=== PATIENT | female | born 1940 | race Caucasian/White ===

== ENCOUNTER 2016-10-24 09:47 | Emergency (ER) | payer SELFPAY ==
[2016-10-24 10:26] VITALS: BP 159/109
--- NOTE | 2016-10-24 11:32 | UC ---
Respiratory Complaint HPI - HPI Summary HPI Summary: The patient comes in today for: 1. cough, sore throat: Onset: 3 days ago. Palliative/provocative: Nothing makes it better or worse. Quality: scratchy. Region: Throat, upper respiratory area. Severity: 6/10 Time: Constant. Associated symptoms: Cough: productive of white material. Dyspnea: "little bit." Chest pain: None. Rhinitis: Clear Previous lung disease: "years ago" had blood clot in the left lung." Inhalers in the past: None. Wheezing: "Little bit." Sinus pressure: Present FEvers: None. * - History of Current Complaint Chief Complaint: UCRespiratory Stated Complaint: URI Time Seen by Provider: 10/24/16 11:26 Hx Obtained From: Patient - Allergies/Home Medications Allergies/Adverse Reactions: Allergies Allergy/AdvReac Type Severity Reaction Status Date / Time No Known Allergies Allergy Verified 10/24/16 10:19 Home Medications: Home Medications FLUoxetine CAP* [PROzac CAP*] 20 mg PO DAILY 10/24/16 [History Confirmed ] Levothyroxine TAB* [Synthroid 75 MCG TAB*] 75 mcg PO DAILY 10/24/16 [History Confirmed 10/24/16] Simvastatin [Zocor 5 MG-] 10 mg PO 1700 10/24/16 [History Confirmed 10/24/16] Warfarin TAB(*) [Coumadin TAB(*)] 3 mg PO 1700 10/24/16 [History Confirmed 10/24] traZODone TAB* [Desyrel TAB*] 50 mg PO BEDTIME 10/24/16 [History Confirmed 10/24] PMH/Surg Hx/FS Hx/Imm Hx Previously Healthy: No Endocrine History Of: Reports: Thyroid Disease, Dyslipidemia Denies: Diabetes, Hyperthyroidism, Hypothyroidism Cardiovascular History Of: Reports: Hypertension Denies: Cardiac Disorders, Pacemaker/ICD, Myocardial Infarction, Congestive Heart Failure, Atrial Fibrillation, Deep Vein Thrombosis, Bleeding Disorders Respiratory History Of: 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 Denies: COPD, Asthma, Bronchitis, Pneumonia GI/ History Of: Denies: Gastroesophageal Reflux, Ulcer, Gastrointestinal Bleed, Gall Bladder Disease, Kidney Stones, Diverticulitis, Renal Disease, Urosepsis Neurological History Of: Denies: TIA, CVA, Dementia, Seizures, Migraine Psychological History Of: Reports: Anxiety, Depression Denies: Bipolar Disorder, Schizophrenia, Post Traumatic Stress Disorder Cancer History Of: Denies: Lung Cancer, Colorectal Cancer, Breast Cancer, Prostate Cancer, Cervical Cancer Other History Of: Anticoagulant Therapy - Warfarin. Negative For: HIV, Hepatitis B, Hepatitis C - Surgical History Surgical History: Yes Surgery Procedure, Year, and Place: d/c - Family History Known Family History: Positive: Hypertension Negative: Cardiac Disease - Social History Occupation: Retired Alcohol Use: None Substance Use Type: None Smoking Status (MU): Former Smoker Review of Systems Constitutional: Negative Skin: Negative Eyes: Negative ENT: Nasal Discharge Respiratory: Cough Cardiovascular: Negative Gastrointestinal: Negative Genitourinary: Negative Motor: Negative All Other Systems Reviewed And Are Negative: Yes Physical Exam Triage Information Reviewed: Yes Appearance: Well-Appearing, No Pain Distress, Well-Nourished, Other: - She will cough several times while I was in the room evaluating her. Vital Signs: Initial Vital Signs Temp 99.6 F 10/24/16 10:23 Pulse 88 10/24/16 10:23 Resp 22 10/24/16 10:23 BP 159/109 10/24/16 10:23 Pulse Ox 96 10/24/16 10:23 Vital Signs Reviewed: Yes Eyes: Positive: Conjunctiva Clear, Discharge ENT: Positive: Normal ENT inspection, Pharynx normal. Negative: Pharyngeal erythema, Nasal congestion, Nasal drainage, TM bulging, TM dull, TM red, Tonsillar swelling, Tonsillar exudate Dental: Negative: Gross Decay/Caries @, Dental Fracture @ Neck: Positive: Supple, Nontender, No Lymphadenopathy. Negative: Nuchal Rigidity Respiratory: Positive: Chest non-tender, Lungs clear, No respiratory distress, No accessory muscle use. Negative: Rhonchi, Wheezing Cardiovascular: Positive: RRR, No Murmur Abdomen Description: Positive: Nontender, No Organomegaly, Soft. Negative: Distended, Guarding Musculoskeletal: Positive: Strength Intact, ROM Intact Neurological: Positive: Alert, Muscle Tone Normal Psychological: Positive: Age Appropriate Behavior, Consolable Skin: Negative: rashes, breakdown UC Diagnostic Evaluation - Laboratory O2 Sat by Pulse Oximetry: 96 Respiratory Course/Dx - Course Course Of Treatment: Patient was told that she appears to have a viral upper respiratory infection which antibiotics will not help. However, if she has a worsening with continued sinus pressure and discoloration of the mucous she may find the antibiotic helpful then. - Differential Dx/Diagnosis Provider Diagnoses: Upper respiratory infection. high blood pressure. Discharge - Discharge Plan Condition: Stable Disposition: HOME Patient Education Materials: Upper Respiratory Infection (ED) Referrals: Fabián Santos MD [Primary Care Provider] - 1 Week (Please see your primary care provider in a week to see how well you are doing and to check your blood pressure. If you get worse, please be seen sooner in the ER or through us.)
== END 2016-10-24 11:46 | disposition home or self-care (01) ==
LOC: UCEAST 09:47
DX: J06.9 Acute upper respiratory infection, unspecified (principal); I10 Essential (primary) hypertension; E07.9 Disorder of thyroid, unspecified; E78.5 Hyperlipidemia, unspecified; Z86.711 Personal history of pulmonary embolism; Z79.01 Long term (current) use of anticoagulants; F41.9 Anxiety disorder, unspecified; F32.9 Major depressive disorder, single episode, unspecified; Z87.891 Personal history of nicotine dependence
CPT/HCPCS: 99202; G0463

== ENCOUNTER 2017-07-20 11:19 | Observation (INO) | payer MEDICARE, OTHER ==
--- OUTSIDE RECORDS SUMMARY | 2017-07-20 11:47 | XMS REPORT ---
:1940 External Reference #:[id number] Author Organization [facility] Address [address] [place] [address] Phone [phone] Care Team Providers Name Role Phone Fabián Santos MD Care Team Information Geotechnical Field Technician Unavailable Fabián Santos MD Primary Care Physician Unavailable Payers Type Date Identification Numbers Payment Provider Subscriber Health Maintenance Effective: Policy Number: [employer] Marilynn Elder (O) 05/29/2016 [id number] Ppo Group Number: [id number] [id number] PayID: [id number] [place] [address] [facility] Expires: Policy Number: [employer] Marilynn Wilson 05/28/2016 [id number] Medicare Group Number: [id number] [address] [address] PayID: [id number] [place] [address] Problems Date Description Provider Status Onset: 11/02/2016 Acute maxillary sinusitis Fabián Santos M.D. Active Onset: 03/10/2016 Long-term current use of Fabián Santos M.D. Active anticoagulant Onset: 03/27/2015 Essential tremor Fabián Santos M.D. Active Onset: 03/27/2015 Pulmonary embolism Fabián Santos M.D. Active Onset: 07/18/2012 Anemia Fabián Santos M.D. Active Onset: 07/18/2012 Anticoagulant Fabián Santos M.D. Active Onset: 03/11/2011 Hyperlipidemia Fabián Santos M.D. Active Onset: 03/11/2011 Hypothyroidism Fabián Santos M.D. Active Social History Type Date Description Comments Smoking Nonsmoker Allergies, Adverse Reactions, Alerts Date Description Reaction Status Severity Comments 10/17/2011 NKDA active 11/13/1997 Nka active 07/18/2017 Doxycycline Hyclate active Medications Medication Date Status Form Strength Qnty SIG Indications Ordering Provider Levothyroxine 03/30 Active Tablets 75mcg 90tab Take One Fabián Sanchez s Tablet By Danielle Mouth Once M.D. Daily Walker With 09/09 Active use as needed Fabián Newman Seat dx: 781.2 Malachi Santos Trazodone HCL 01/28 Active Tablets 50mg 90tab take 1 to 3 Fabián Newman /2010 s tablets [facility] [place] [facility] as M.DAltaf directed Warfarin 01/16 Active Tablets 3mg 60tab use as Kash F. Sodium s directed Malachi Lyons Zocor 01/12 Active Tablets 10mg 90tab take one Fabián Newman s tablet by Danielle mouth nightly M.DAltaf at bedtime Prozac 04/26 Active Caps 20mg 30cap 1qd - take F41.9 Fabián Newman /2006 s one capsule Danielle by mouth M.DAltaf every day Zithromax 11/02 Hx Tablets 250mg 1tabs as directed Fabián KincaidValente Hugo Santos M.D. 11/02 Cefuroxime 11/02 Hx Tablets 500mg 20tab twice a day Fabián Newman Axetil s as needed Hugo Santos M.D. 07/18 Propranolol 03/27 Hx Tablets 20mg 30tab take one Fabián Newman HCL s tablet a day Hugo Santos tremor M.DAltaf 03/10 Iron 07/18 Hx Tablets 325(65Fe) 60tab 1 po bid Fabián Newman /2012 mg s Hugo Santos M.D. 06/16 Synthroid 12/07 Hx Tablets 75mcg 90tab 1 by mouth Fabián Newman /2009 s every day Hugo Santos M.D. 03/30 Synthroid 06/23 Hx Tablets 100mcg 30tab take one Fabián Newman s tablet by Danielle - mouth one M.D. 12/07 time daily Multivitamins 01/12 Hx Tablets 30tab 1 po qd [facility] 07/18 Warfarin 01/12 Hx Tablets 2mg 90tab take as [facility] 06/16 [facility] [place] Synthroid 01/12 Hx Tablets 125mcg 30tab 1 po qd Fabián Trent Hugo Robin M.D. 06/23 Loratadine 08/28 Hx Tablets 10mg 30tab 1 po qd 477.9 polly Smith - [employer] 03/04 Ambien 06/06 Hx Tablets 10mg 30tab 1 po qhs prn polly Smith - [employer] 09/28 Trazadone 04/26 Hx 50mg 90uni 1-3 po q hs 780.52 Fabián Newman Hugo Mckinney M.D. 04/13 Xanax 09/20 Hx Tablets 0.25mg 30tab 1 po tid 300.00 Fabián Newman /2006 Hugo Robin M.D. 12/09 Out Of Work 12/22 Hx Was out of work 12/17 And Nehemias - 12/18 due to Afnp-C 12/25 illness Omnicef 12/12 Hx Capsules 300mg 14cap 2 PO qd X 7 680.8 s Days Nehemias, - Afnp-C 12/19 Keflex 12/12 Hx Capsules 500mg 6caps 1 po bid x 3 680.8 days Nehemias, - Afnp-C 12/22 Out Of Work 12/12 Hx was out of work yest due Nehemias, - to illness Afnp-C 12/14 Note 03/20 Hx Ada Has Been Out Of Work Sarah, - Since [employer] 12/12 10\\\\04 Due To L Knee Pain And May Not Return Until Seen By The Orthopedist Vicodin 03/20 Hx 5/500 60uni 1-2 po q4hrs ts prn Sarah, - [employer] 12/12 Lexapro 03/02 Hx 20mg 60uni 1 po qd [facility] 12/12 Of Bextra 03/02 Hx 10mg 30uni 1 po qd ts Sarah, - [employer] 03/20 Note 03/02 Hx ada was unable to Sarah, - work 10\\1\\04 [employer] 03/20 -10\\3\\04 due to knee pain and may return to work monday, 10\\6\\04 Cipro XR 02/18 Hx 500mg. 10uni One PO qd as Baron A. Hugo Purvis M.D. 02/28 Bactroban 02/18 Hx 15Gra apply to Chin Baron Lebron Hugo Mcclellan M.D. 12/12 Prozac 12/01 Hx 20mg 1 PO qd [facility] 03/02 Of Levaquin 12/01 Hx 500mg 3unit 1 qd Baron A. Hugo Baez M.D. 02/18 Avelox 11/27 Hx 400mg 5unit 1 qd Siddharth T. Hugo Mccrary M.D. 12/01 Work Excuse 11/27 Hx unable to Siddharth TAltaf work from [employer], - 12/01-7 Malachi 03/20 Amoxicillin 05/10 Hx 250mg 30uni 1PO tid Fabián Newman Hugo Mckinney M.D. 11/27 Work Excuse 05/10 Hx unable to Fabián Newman /2002 work 05/11/03 Hugo Santos M.D. 11/27 Return To Work 04/28 Hx may return to Adrián JAltaf /2002 work as of [employer], - 04/20/03 Malachi 11/27 And Normal Duties Buspar 01/28 Hx 5mg 90uni 1 PO tid Adrián JAltaf /2002 Hugo Francis M.D. 02/11 Zoloft 01/07 Hx 50mg 30uni One Half Tab Adrián JAltaf /2002 ts Daily For 5 Finver, - Days Then 1 M.D. 12/01 Tessalon 09/10 Hx 100mg 30uni 1 PO tid Adrián JAltaf Pear ts Hugo Davidson M.D. 09/20 Duratuss 09/10 Hx 20uni 1 PO bid prn Adrián J. ts Head Lety, - Congestion MMartin 09/20 Work Excuse 09/10 Hx Unable To Adrián J. Work due to Lety, - illness May M.DAltaf 04/28 Return 03/20/03 Zithromax 08/29 Hx 250mg 6unit 2 Tabs Day 1 Emmanuel S. s Malachi Santo - 1 09/04 Tab qd Days Thru 5 Out Of Work 08/29 Hx Out Of Work Baron AAltaf Until 09/01/02 Hugo Green M.D. 09/08 Due To Illness Diflucan 06/21 Hx 100mg 8unit 2 Stat, Then s 1 qd Nehemias, - Afnp-C 06/28 Terazol 7 06/21 Hx 1unit 1 s Applicatorful Nehemias, - Vaginally hs Afnp-C 06/28 X Xanax 06/11 Hx .25mg 30uni 1 PO tid prn ts Nehemias, - Afnp-C 01/07 Macrobid 06/05 Hx 100mg 20uni 1 bid Siddharth T. ts Midura, - M.D. 06/21 Pyridium 06/05 Hx 100mg 30uni 1 PO tid prn Siddharth T. ts Bladder Pain Midura, - M.D. 06/21 Out Of Work 05/31 Hx PT Will Be Siddharth T. Out Of Work Midura, - 05/31/02- M.D. 06/21 3 D/T Illness Floxin 05/30 Hx 200mg 20uni 1 PO bid Tali ts Nehemias - Afnp-C 06/09 Estrace 05/23 Hx CR 0.01% 42.5G 2G Intravaginall Nehemias, - y Daily X 2 Afnp-C 02/11 WKS; 1G qd X 2 WKS; Maintenance: 1G 1 X/WK Note 05/23 Hx Ada Was Seen In This Nehemias, - Office Today Afnp-C 05/24 Bactrim DS 05/14 Hx 10uni 1 PO bid Adrián J. Hugo Francis M.D. 05/23 Levaquin 04/12 Hx 500mg 5unit 1 qd Fabián JAltaf s Hugo Santos M.D. 05/14 Note For 04/12 Hx Off Today May Adrián J. School Or Work /2001 Return To Lety, Absence - Work 04-13 M.DAltaf 05/23 Return To Work 07/26 Hx May Return To Work On Sarah, - Monday 3\\4\\02 [facility] 10/02 Duratuss G 07/26 Hx 20uni Take One bid ts Sarah, - [facility] 10/02 Return To Work 07/20 Hx May Not Return To Sarah, - Work Until [facility] 10/02 Rechecked By Me 2\\28\\02. Out Of Work 07/17 Hx Out Of Work Candel[facility] Through [facility] [place], - 07/20/01 Afnp-C 07/20 Biaxin 07/12 Hx Tabs 500mg 20tab 1 PO bid s Sarah, - [facility] 10/02 Return To Work 07/12 Hx May Not Return To Sarah, - Work Until [facility] 10/02 2\\20\\02 Out Of Work 10/04 Hx Will Be Out Kash F. /2000 Of Work Hugo Lyons M.D. 10/05 Until 10/09/00 Out Of Work 09/18 Hx Will Be Out Kash F. /2000 Of Work Hugo Lyons M.D. 09/19 Until 10/02/00 Vicodin 09/15 Hx 5/500 mg 30uni 1-2 PO Q4-6H Kash F. ts Hugo Roberts M.D. 10/02 Out Of Work 09/11 Hx May Return To Kash F. /2001 Work On [employer] Hugo Lyons M.D. 09/1209/14/00 Out Of Work 09/05 Hx Will Be Out Of Work Hugo Del Cid 09/12 Until 09/12/00 Amoxicillin 08/25 Hx 250mg 30uni 1 PO tid Fabián J. Hugo Mckinney M.D. 09/05 Anaprox DS 03/04 Hx Tabs 550mg 10tab 1 PO bid prn Hugo Marin M.D. 03/18 Xanax 01/19 Hx .25mg 90uni 1 PO tid prn . Hugo Pride M.D. 08/25 Prozac 12/31 Hx 20mg 30uni 1 PO qd Hugo Pride M.D. 10/02 Out Of Work 12/24 Hx Will Be Out Altaf Of Work Until Serena, - 01/05/98 Malachi 12/25 Zoloft 12/16 Hx 50mg 0unit Take One . s Hugo Givens M.D. 12/31 Xanax 12/16 Hx Tabs .25mg 60tab 1 PO tid prn Hugo Marin M.D. 12/30 Out Of Work 12/09 Hx Will Be Out Altaf Of Work Until Serena, - 12/11/97 Malachi 12/10 Zithromax 11/13 Hx 250mg 6unit 2 Tabs Day 1 polly Del Cid - Nacho Avila-Tristen 11/18 Tab qd Days Thru 5 Womens 50+ 00/00 Hx Capsules Unknown Advanced /0000 - 11/02 Immunizations CPT Code Status Date Vaccine Lot # [id number] Given 04/13/2017 Influenza Vac, Quadrivalent, Slit Virus, Im [id number] Given 03/10/2016 High-Dose, Influenza Virus Vacccine-fluzone 65 and [id number] older 29617 Given 03/27/2015 Pneumococcal Conjugate Vacc-13 [id number] 19806 Given 03/27/2015 High-Dose, Influenza Virus Vacccine-fluzone 65 and [id number] older 78967 Given 05/23/2014 High-Dose, Influenza Virus Vacccine-fluzone 65 and [id number] older 35470 Given 02/27/2012 DO Not Use Split Influenza Virus Vaccine [id number] Given 03/11/2011 Split Influenza Medicare: Fluzone [id number] 20591 Given 03/11/2011 Pneumococcal Immunization [id number] Vital Signs Date Vital Result Comment 07/18/2017 Heart Rate 80 /min Body Temperature 97.7 F O2 % BldC Oximetry 94 % 11/02/2016 BP Systolic 126 mmHg BP Diastolic 80 mmHg Heart Rate 78 /min Body Temperature 98.1 F Respiratory Rate 16 /min Height 64 inches 5'4" Weight 185.00 lb BMI (Body Mass Index) 31.8 kg/m2 09/09/2016 Heart Rate 88 /min Body Temperature 97.5 F Respiratory Rate 20 /min Height 64 inches 5'4" Weight 188.00 lb BMI (Body Mass Index) 32.3 kg/m2 03/10/2016 BP Systolic 132 mmHg BP Diastolic 82 mmHg Heart Rate 80 /min Body Temperature 97.8 F Height 64 inches 5'4" Weight 198.00 lb BMI (Body Mass Index) 34.0 kg/m2 03/27/2015 BP Systolic 136 mmHg BP Diastolic 80 mmHg Heart Rate 62 /min Body Temperature 97.4 F Respiratory Rate 20 /min Height 64 inches 5'4" Weight 196.00 lb BMI (Body Mass Index) 33.6 kg/m2 12/15/2014 BP Systolic 136 mmHg BP Diastolic 80 mmHg Heart Rate 64 /min Body Temperature 98.0 F Respiratory Rate 18 /min Height 64 inches 5'4" Weight 194.00 lb BMI (Body Mass Index) 33.3 kg/m2 06/16/2014 BP Systolic 130 mmHg BP Diastolic 802 mmHg Heart Rate 64 /min Body Temperature 97.5 F Respiratory Rate 20 /min Height 64 inches 5'4" Weight 196.00 lb BMI (Body Mass Index) 33.6 kg/m2 03/15/2013 BP Systolic 138 mmHg BP Diastolic 80 mmHg Heart Rate 64 /min Body Temperature 97.5 F Respiratory Rate 16 /min Height 64 inches 5'4" Weight 194.00 lb BMI (Body Mass Index) 33.3 kg/m2 08/13/2012 BP Systolic 122 mmHg BP Diastolic 72 mmHg Heart Rate 74 /min Body Temperature 98.6 F Respiratory Rate 16 /min Height 64 inches 5'4" Weight 195.25 lb BMI (Body Mass Index) 33.5 kg/m2 07/18/2012 BP Systolic 136 mmHg BP Diastolic 80 mmHg Heart Rate 82 /min Body Temperature 98.9 F Respiratory Rate 18 /min Height 64 inches 5'4" Weight 199.00 lb BMI (Body Mass Index) 34.2 kg/m2 04/13/2012 BP Systolic 142 mmHg BP Diastolic 72 mmHg Heart Rate 80 /min Body Temperature 97.6 F Height 64 inches 5'4" Weight 204.00 lb BMI (Body Mass Index) 35.0 kg/m2 10/17/2011 BP Systolic 140 mmHg BP Diastolic 80 mmHg Heart Rate 80 /min Body Temperature 98.9 F Height 64 inches 5'4" Weight 203.00 lb BMI (Body Mass Index) 34.8 kg/m2 03/11/2011 BP Systolic 118 mmHg BP Diastolic 76 mmHg Heart Rate 68 /min Respiratory Rate 15 /min Height 64 inches 5'4" Weight 200.00 lb BMI (Body Mass Index) 34.3 kg/m2 09/09/2010 BP Systolic 142 mmHg BP Diastolic 80 mmHg Heart Rate 76 /min Height 64 inches 5'4" Weight 201.00 lb BMI (Body Mass Index) 34.5 kg/m2 12/04/2009 BP Systolic 110 mmHg BP Diastolic 62 mmHg Heart Rate 76 /min Weight 179.00 lb 09/02/2009 BP Systolic 130 mmHg BP Diastolic 80 mmHg Heart Rate 76 /min Height 64 inches 5'4" Weight 178.00 lb BMI (Body Mass Index) 30.6 kg/m2 06/16/2009 BP Systolic 124 mmHg BP Diastolic 76 mmHg Heart Rate 80 /min Height 64 inches 5'4" Weight 176.00 lb BMI (Body Mass Index) 30.2 kg/m2 03/04/2009 BP Systolic 120 mmHg BP Diastolic 70 mmHg Heart Rate 76 /min Height 64 inches 5'4" Weight 180.00 lb BMI (Body Mass Index) 30.9 kg/m2 01/12/2009 BP Systolic 120 mmHg BP Diastolic 84 mmHg Heart Rate 72 /min Weight 180.00 lb 08/28/2008 BP Systolic 122 mmHg BP Diastolic 82 mmHg Heart Rate 90 /min Weight 182.00 lb 04/26/2007 BP Systolic 140 mmHg BP Diastolic 80 mmHg Heart Rate 88 /min Body Temperature 97.9 F Respiratory Rate 20 /min Height 64 inches 5'4" 10/24/2006 BP Systolic 128 mmHg BP Diastolic 80 mmHg Heart Rate 76 /min Body Temperature 98.6 F Height 64 inches 5'4" Weight 177.00 lb BMI (Body Mass Index) 30.4 kg/m2 09/20/2006 BP Systolic 126 mmHg BP Diastolic 68 mmHg Heart Rate 80 /min Height 64 inches 5'4" Weight 180.00 lb BMI (Body Mass Index) 30.9 kg/m2 12/15/2005 BP Systolic 140 mmHg BP Diastolic 80 mmHg Heart Rate 78 /min Body Temperature 99.0 F Height 64 inches 5'4" Weight 173.00 lb BMI (Body Mass Index) 29.7 kg/m2 12/12/2005 BP Systolic 126 mmHg BP Diastolic 84 mmHg Heart Rate 96 /min Body Temperature 99.0 F Height 64 inches 5'4" Weight 173.00 lb BMI (Body Mass Index) 29.7 kg/m2 03/20/2004 BP Systolic 134 mmHg BP Diastolic 90 mmHg Heart Rate 80 /min Height 64 inches 5'4" Weight 174.00 lb BMI (Body Mass Index) 29.9 kg/m2 03/02/2004 BP Systolic 120 mmHg BP Diastolic 80 mmHg Heart Rate 80 /min Body Temperature 98.4 F Height 64 inches 5'4" Weight 175.00 lb BMI (Body Mass Index) 30.0 kg/m2 02/19/2004 BP Systolic 136 mmHg BP Diastolic 90 mmHg Heart Rate 76 /min Body Temperature 97.7 F Height 64 inches 5'4" Weight 176.00 lb BMI (Body Mass Index) 30.2 kg/m2 12/08/2003 BP Systolic 132 mmHg BP Diastolic 86 mmHg Heart Rate 72 /min Height 64 inches 5'4" Weight 176.00 lb BMI (Body Mass Index) 30.2 kg/m2 12/06/2003 BP Systolic 130 mmHg BP Diastolic 80 mmHg Heart Rate 80 /min Body Temperature 98.2 F Height 64 inches 5'4" Weight 176.00 lb BMI (Body Mass Index) 30.2 kg/m2 12/03/2003 BP Systolic 148 mmHg BP Diastolic 80 mmHg Heart Rate 108 /min Body Temperature 98.2 F Height 64 inches 5'4" 12/02/2003 BP Systolic 146 mmHg BP Diastolic 72 mmHg Heart Rate 76 /min Body Temperature 97.8 F Height 64 inches 5'4" Weight 174.00 lb BMI (Body Mass Index) 29.9 kg/m2 11/28/2003 BP Systolic 142 mmHg BP Diastolic 80 mmHg Heart Rate 72 /min Body Temperature 99.8 F Height 64 inches 5'4" Weight 172.00 lb BMI (Body Mass Index) 29.5 kg/m2 05/10/2003 BP Systolic 128 mmHg BP Diastolic 80 mmHg Body Temperature 97.6 F Height 64 inches 5'4" 02/11/2003 BP Systolic 134 mmHg BP Diastolic 94 mmHg Heart Rate 72 /min Height 64 inches 5'4" Weight 155.00 lb BMI (Body Mass Index) 26.6 kg/m2 01/28/2003 BP Systolic 106 mmHg BP Diastolic 60 mmHg Heart Rate 88 /min Height 64 inches 5'4" Weight 150.00 lb BMI (Body Mass Index) 25.7 kg/m2 01/07/2003 BP Systolic 110 mmHg BP Diastolic 50 mmHg Heart Rate 100 /min Height 64 inches 5'4" 09/10/2002 BP Systolic 120 mmHg BP Diastolic 80 mmHg Heart Rate 128 /min Body Temperature 98.8 F Height 64 inches 5'4" Weight 160.00 lb BMI (Body Mass Index) 27.5 kg/m2 08/29/2002 Heart Rate 112 /min Body Temperature 99.5 F Height 64 inches 5'4" 08/01/2002 BP Systolic 140 mmHg BP Diastolic 90 mmHg Heart Rate 74 /min Height 64 inches 5'4" 06/26/2002 BP Systolic 130 mmHg BP Diastolic 76 mmHg Heart Rate 80 /min Height 64 inches 5'4" Weight 155.00 lb BMI (Body Mass Index) 26.6 kg/m2 06/21/2002 BP Systolic 120 mmHg BP Diastolic 80 mmHg Body Temperature 98.4 F Height 64 inches 5'4" 06/11/2002 BP Systolic 128 mmHg BP Diastolic 72 mmHg Heart Rate 80 /min Body Temperature 98.5 F Height 64 inches 5'4" 06/05/2002 BP Systolic 136 mmHg BP Diastolic 88 mmHg Heart Rate 84 /min Body Temperature 98.1 F Height 64 inches 5'4" 05/23/2002 BP Systolic 112 mmHg BP Diastolic 80 mmHg Body Temperature 97.7 F Height 64 inches 5'4" Weight 159.00 lb BMI (Body Mass Index) 27.3 kg/m2 04/12/2002 BP Systolic 128 mmHg BP Diastolic 82 mmHg Heart Rate 68 /min Body Temperature 97.9 F Height 64 inches 5'4" Weight 159.00 lb BMI (Body Mass Index) 27.3 kg/m2 10/02/2001 BP Systolic 122 mmHg BP Diastolic 70 mmHg Height 64 inches 5'4" Weight 158.00 lb BMI (Body Mass Index) 27.1 kg/m2 07/26/2001 BP Systolic 120 mmHg BP Diastolic 80 mmHg Heart Rate 72 /min Height 64 inches 5'4" Weight 160.00 lb BMI (Body Mass Index) 27.5 kg/m2 07/20/2001 BP Systolic 132 mmHg BP Diastolic 82 mmHg Body Temperature 98.8 F Height 64 inches 5'4" Weight 158.00 lb BMI (Body Mass Index) 27.1 kg/m2 07/17/2001 BP Systolic 122 mmHg BP Diastolic 78 mmHg Body Temperature 97.8 F Height 64 inches 5'4" Weight 156.00 lb BMI (Body Mass Index) 26.8 kg/m2 07/12/2001 BP Systolic 102 mmHg BP Diastolic 60 mmHg Body Temperature 100.7 F Height 64 inches 5'4" Weight 160.00 lb BMI (Body Mass Index) 27.5 kg/m2 09/11/2000 BP Systolic 100 mmHg BP Diastolic 80 mmHg Heart Rate 92 /min Height 64 inches 5'4" Weight 166.00 lb BMI (Body Mass Index) 28.5 kg/m2 09/05/2000 BP Systolic 110 mmHg LG Cuff BP Diastolic 70 mmHg LG Cuff Body Temperature 97.7 F With Advil Height 64 inches 5'4" Weight 166.50 lb BMI (Body Mass Index) 28.6 kg/m2 08/25/2000 BP Systolic 110 mmHg BP Diastolic 70 mmHg Body Temperature 97.4 F With Advil Height 64 inches 5'4" Weight 165.00 lb BMI (Body Mass Index) 28.3 kg/m2 03/04/1998 Weight 122.00 lb 02/24/1998 BP Systolic 108 mmHg BP Diastolic 70 mmHg Height 64 inches 5'4" Weight 122.00 lb 12/24/1997 BP Systolic 110 mmHg BP Diastolic 62 mmHg 12/16/1997 BP Systolic 150 mmHg BP Diastolic 96 mmHg Height 64 inches 5'4" Weight 113.00 lb 12/09/1997 BP Systolic 110 mmHg BP Diastolic 84 mmHg Body Temperature 97.8 F Weight 115.00 lb 11/13/1997 BP Systolic 100 mmHg BP Diastolic 60 mmHg Body Temperature 97.6 F With Tylenol Height 63 inches 5'3" Weight 115.00 lb 02/12/1997 BP Systolic 110.74 mmHg Height 63.00 inches 5'3" Weight 129.00 lb Results Test Date Test Result H/L Range Note CBC Electronic (a New) 07/18/2017 WBC 5.96 4.0-10.0 RBC 4.98 3.93-6.0 Hemoglobin (Fma/CMC/CTX) 11.5 g/dL Low 12.0-17.0 Hematocrit (Fma/CMC/CTX) 34.1 % Low 35.0-50.0 Mean Corpuscular Vol 68.5 fL Low 80-95 1 Mean Corpuscular Hemoglobin 23.1 pg Low 25.6-32.2 Mean Corpuscular Hemo Concen 33.7 g/dL 32.2-36.0 Platelets 517 10^3/ul High 163-400 2 RDW-CV 14.9 High 11.6-14.4 Mean Platelet Volume 9.0 fL Low 9.4-12.4 Absolute Neutrophils BLD 3.89 1.56-6.13 Absolute Lymphocytes 1.31 1.18-3.74 Absolute Monocytes BLD Auto 0.71 0.24-0.82 Absolute Eos Blood 0.00 Low 0.04-0.54 Absolute Basophils 0.01 0.01-0.08 Neutrophil % 65.2 34.0-70.0 Lymph% 22.0 % 20.0-52.0 Monocytes % 11.9 % 5.0-12.0 Eos % 0.0 % Low 0.7-7.0 Basophil% 0.2 % 0.1-1.2 Laboratory test finding 06/23/2017 Inr (Fma) 2.0 2-3 Laboratory test finding 05/19/2017 Inr (Fma) 2.1 2.0-3.0 Laboratory test finding 04/13/2017 Inr (Fma) 1.8 Low 2.0-3.0 Laboratory test finding 03/13/2017 Inr (Fma) 2.1 2.0-3.0 Laboratory test finding 03/13/2017 LDL, Direct 88 mg/dL 0-130 Lipid Profile 03/13/2017 Cholesterol 193 mg/dL 120-200 Triglycerides 283 mg/dL High 30-200 HDL Cholesterol 47 mg/dL 30-85 LDL (Calculated) 89 CALC 0-129 3 VLDL Cholesterol 57 mg/dL High 0-50 HDL Risk Factor 4.1 CALC 0.0-4.4 Laboratory test finding 03/13/2017 TSH 1.87 mIU/L 0.50-6.00 Free T4 1.32 ng/dL 0.75-1.54 Complete Blood Count 03/13/2017 WBC 5.1 x10^3/UL 3.6-9.6 RBC 4.93 x10^6/UL 3.90-5.70 HGB 12.9 g/dL 12.1-17.2 HCT 40 % 36-50 MCV 81.0 fL Low 82.2-97.4 4 MCH 26.1 pg Low 27.6-33.3 5 MCHC 32.3 g/dL Low 33.0-35.5 6 RDW 14.6 % High 11.6-13.7 PLT 293 x10^3/UL 150-400 MPV 8.4 fL 7.4-10.4 Gran # 2.5 x10^3/UL 1.5-7.2 Lymph# 2.3 x10^3/UL 0.7-4.9 Davis# 0.3 x10^3/UL 0.1-0.9 Gran % 46.4 % 42.2-75.2 Lymph % 45.9 % 20.5-51.1 Davis% 7.7 % 1.7-9.3 Comprehensive Metabolic Prof 03/13/2017 Sodium 146 mEq/L 134-149 Potassium 4.7 mEq/L 3.6-5.5 Chloride 107 mEq/L 94-112 Carbon Dioxide 25 mEq/L 21-32 Glucose 100 mg/dL 70-105 BUN 14 mg/dL 6-26 Creatinine 1.0 mg/dL 0.6-1.4 BUN/Creat Ratio 14.0 CALC 8.0-36.0 Calcium 9.6 mg/dL 8.6-10.2 Total Protein 8.0 g/dL 6.4-8.3 Albumin 4.4 g/dL 3.8-5.5 Globulin 3.6 g/dL 2.0-4.8 A/G Ratio 1.2 CALC 0.6-2.3 Alk. Phosphatase 97 U/L 30-110 Alt (SGPT) 21 U/L 7-35 Ast (Sgot) 24 U/L 5-34 Total Bilirubin 0.3 mg/dL 0.2-1.3 GFR Non- 57 ml/min/1.73m^ Low >=60 GFR >60 ml/min/1.73m^ >=60 Laboratory test finding 01/31/2017 Inr (Fma) 2.0 2.0-3.0 Laboratory test finding 12/30/2016 Inr (Fma) 2.2 2.0-3.0 Laboratory test finding 11/30/2016 Inr (Fma) 2.4 2.0-3.0 Laboratory test finding 10/10/2016 Inr (Fma) 2.5 2.0-3.0 Laboratory test finding 09/09/2016 Inr (Fma) 2.6 2-3 Laboratory test finding 08/15/2016 Inr (Fma) 2.2 2.0-3.0 Laboratory test finding 07/18/2016 Inr (Fma) 2.9 2.0-3.0 Laboratory test finding 06/20/2016 Inr (Fma) 2.7 2.0-3.0 Laboratory test finding 06/06/2016 Inr (Fma) 3.4 High 2.0-3.0 Laboratory test finding 05/16/2016 Inr (Fma) 2.8 2.0-3.0 Laboratory test finding 04/25/2016 Inr (Fma) 2.9 2.0-3.0 Laboratory test finding 04/11/2016 Inr (Fma) 3.1 High 2.0-3.0 Laboratory test finding 03/10/2016 TSH 1.90 mIU/L 0.50-6.00 Free T4 1.06 ng/dL 0.75-1.54 Lipid Profile 03/10/2016 Cholesterol 197 mg/dL 120-200 Triglycerides 295 mg/dL High 30-200 HDL Cholesterol 40 mg/dL 30-85 LDL (Calculated) 98 CALC 0-129 VLDL Cholesterol 59 mg/dL High 0-50 HDL Risk Factor 4.9 CALC High 0.0-4.4 Comprehensive Metabolic Prof 03/10/2016 Sodium 135 mEq/L 134-149 Potassium 4.1 mEq/L 3.6-5.5 Chloride 100 mEq/L 94-112 Carbon Dioxide 22 mEq/L 21-32 Glucose 97 mg/dL 70-105 BUN 15 mg/dL 6-26 Creatinine 0.9 mg/dL 0.6-1.4 BUN/Creat Ratio 16.7 CALC 8.0-36.0 Calcium 8.8 mg/dL 8.6-10.2 Total Protein 7.3 g/dL 6.4-8.3 Albumin 4.2 g/dL 3.8-5.5 Globulin 3.1 g/dL 2.0-4.8 A/G Ratio 1.4 CALC 0.6-2.3 Alk. Phosphatase 83 U/L 30-110 Alt (SGPT) 38 U/L High 7-35 7 Ast (Sgot) 36 U/L High 5-34 8 Total Bilirubin 0.4 mg/dL 0.2-1.3 GFR Non- >60 ml/min/1.73m^ >=60 GFR >60 ml/min/1.73m^ >=60 Complete Blood Count 03/10/2016 WBC 5.2 x10^3/UL 3.6-9.6 RBC 4.58 x10^6/UL 3.90-5.70 HGB 12.1 g/dL 12.1-17.2 HCT 37 % 36-50 MCV 81.0 fL Low 82.2-97.4 9 MCH 26.6 pg Low 27.6-33.3 10 MCHC 32.9 g/dL Low 33.0-35.5 11 RDW 14.6 % High 11.6-13.7 PLT 245 x10^3/UL 150-400 MPV 7.2 fL Low 7.4-10.4 Gran # 2.6 x10^3/UL 1.5-7.2 Lymph# 2.2 x10^3/UL 0.7-4.9 Davis# 0.4 x10^3/UL 0.1-0.9 Gran % 48.8 % 42.2-75.2 Lymph % 42.7 % 20.5-51.1 Davis% 8.5 % 1.7-9.3 Laboratory test finding 03/10/2016 LDL, Direct 101 mg/dL 0-130 Laboratory test finding 03/10/2016 Inr (Fma) 2.9 2.0-3.0 Laboratory test finding 01/06/2016 Inr (Fma) 2.5 2.0-3.0 Laboratory test finding 12/01/2015 Inr (Fma) 3.0 2.0-3.0 Laboratory test finding 10/30/2015 Inr (Fma) 2.8 2-3 Laboratory test finding 09/29/2015 Inr (Fma) 1.9 Low 2-3 Laboratory test finding 09/08/2015 Inr (Fma) 2.2 2-3 Laboratory test finding 08/25/2015 Inr (Fma) 2.1 2.0-3.0 Laboratory test finding 08/18/2015 Inr (Fma) 1.6 Low 2.0-3.0 Laboratory test finding 07/20/2015 Inr (Fma) 1.8 Low 2.0-3.0 Laboratory test finding 06/10/2015 Inr (Fma) 2.0 2-3 Laboratory test finding 05/27/2015 Inr (Fma) 1.8 Low 2-3 Laboratory test finding 04/27/2015 Inr (Fma) 2.2 2-3 Laboratory test finding 03/27/2015 Inr (Fma) 2.1 2-3 Complete Blood Count 03/27/2015 WBC 5.4 x10^3/UL 3.6-9.6 RBC 4.77 x10^6/UL 3.90-5.70 HGB 12.8 g/dL 12.1-17.2 HCT 39 % 36-50 MCV 82.0 fL Low 82.2-97.4 MCH 26.9 pg Low 27.6-33.3 MCHC 32.6 g/dL Low 33.0-35.5 RDW 14.2 % High 11.6-13.7 PLT 289 x10^3/UL 150-400 MPV 7.6 fL 7.4-10.4 Gran # 2.8 x10^3/UL 1.5-7.2 Lymph# 2.3 x10^3/UL 0.7-4.9 Davis# 0.3 x10^3/UL 0.1-0.9 Gran % 49.2 % 42.2-75.2 Lymph % 43.5 % 20.5-51.1 Davis% 7.3 % 1.7-9.3 Comprehensive Metabolic Prof 03/27/2015 Sodium 137 mEq/L 134-149 Potassium 4.2 mEq/L 3.6-5.5 Chloride 100 mEq/L 94-112 Carbon Dioxide 27 mEq/L 21-32 Glucose 91 mg/dL 70-105 BUN 12 mg/dL 6-26 Creatinine 0.9 mg/dL 0.6-1.4 BUN/Creat Ratio 13.3 CALC 8.0-36.0 Calcium 10.0 mg/dL 8.6-10.2 Total Protein 7.3 g/dL 6.4-8.3 Albumin 4.0 g/dL 3.8-5.5 Globulin 3.3 g/dL 2.0-4.8 A/G Ratio 1.2 CALC 0.6-2.3 Alk. Phosphatase 84 U/L 30-110 Alt (SGPT) 26 U/L 7-35 Ast (Sgot) 21 U/L 5-34 Total Bilirubin 0.3 mg/dL 0.2-1.3 GFR Non- >60 ml/min/1.73m^ >=60 GFR >60 ml/min/1.73m^ >=60 Lipid Profile 03/27/2015 Cholesterol 186 mg/dL 120-200 Triglycerides 230 mg/dL High 30-200 HDL Cholesterol 45 mg/dL 30-85 LDL (Calculated) 95 CALC 0-129 VLDL Cholesterol 46 mg/dL 0-50 HDL Risk Factor 4.1 CALC 0.0-4.4 Laboratory test finding 03/27/2015 Free T4 1.43 ng/dL 0.75-1.54 TSH 1.51 mIU/L 0.50-6.00 Laboratory test finding 02/05/2015 Inr (Fma) 2.1 2.0-3.0 Laboratory test finding 01/05/2015 Inr (Fma) 2.7 2.0-3.0 Laboratory test finding 12/03/2014 Inr (Fma) 2.4 2.0-3.0 Laboratory test finding 11/17/2014 Inr (Fma) 1.6 Low 2.0-3.0 Laboratory test finding 10/16/2014 Inr (Fma) 2.2 2.0-3.0 Laboratory test finding 09/15/2014 Inr (Fma) 2.5 2.0-3.0 Laboratory test finding 08/14/2014 Inr (Fma) 2.2 2.0-3.0 Laboratory test finding 07/17/2014 Inr (Fma) 2.1 2.0-3.0 Laboratory test finding 06/16/2014 Inr (Fma) 2.5 2.0-3.0 Laboratory test finding 06/16/2014 LDL, Direct 96 mg/dL 0-130 Comprehensive Metabolic Prof 06/16/2014 Sodium 136 mEq/L 134-149 Potassium 4.5 mEq/L 3.6-5.5 Chloride 97 mEq/L 94-112 Carbon Dioxide 27 mEq/L 21-32 Glucose 91 mg/dL 70-105 BUN 13 mg/dL 6-26 Creatinine 1.0 mg/dL 0.6-1.4 BUN/Creat Ratio 13.0 CALC 8.0-36.0 Calcium 9.5 mg/dL 8.6-10.2 Total Protein 7.8 g/dL 6.4-8.3 Albumin 4.3 g/dL 3.8-5.5 Globulin 3.5 g/dL 2.0-4.8 A/G Ratio 1.2 CALC 0.6-2.3 Alk. Phosphatase 84 U/L 30-110 Alt (SGPT) 24 U/L 7-35 Ast (Sgot) 23 U/L 5-34 Total Bilirubin 0.3 mg/dL 0.2-1.3 Lipid Profile 06/16/2014 Cholesterol 203 mg/dL High 120-200 Triglycerides 340 mg/dL High 30-200 HDL Cholesterol 40 mg/dL 30-85 LDL (Calculated) 95 CALC 0-129 VLDL Cholesterol 68 mg/dL High 0-50 HDL Risk Factor 5.1 CALC High 0.0-4.4 Laboratory test finding 06/16/2014 TSH 1.07 mIU/L 0.50-6.00 Free T4 1.08 ng/dL 0.75-1.54 CBC Electronic (a) 06/16/2014 WBC 5.4 3.6-9.6 RBC 4.83 3.90-5.70 Hemoglobin (Fma/CMC/CTX) 12.7 g/dL 12.1 - 17.2 Hematocrit (Fma/CMC/CTX) 39.3 % 36.1 - 50.3 Platelets 278 10^3/ul 150-400 Lymph% 48.1 % High 17.0-48.0 Mixed% 5.5 Neutrophils % 46.4 Mean Corpuscular Vol 81 Low 82.2-97.4 12 Mean Corpuscular Hemoglobin 26.2 Low 27.6-33.3 Mean Corpuscular Hemo Concen 32.2 32.0-36.0 RDW 13.8 High 11.6-13.7 Mean Platelet Volume 6.7 5.5-11.0 Laboratory test finding 05/23/2014 Inr (Fma) 2.2 2.0-3.0 Laboratory test finding 05/08/2014 Inr (Fma) 3.5 High 2-3 Laboratory test finding 04/22/2014 Inr (Fma) 3.6 High 2-3 Laboratory test finding 03/17/2014 Inr (Fma) 2.6 2.0-3.0 Laboratory test finding 02/17/2014 Inr (Fma) 2.8 2-3 Laboratory test finding 01/17/2014 Inr (Fma) 1.8 Low 2-3 Laboratory test finding 12/17/2013 Inr (Fma) 2.0 2-3 Laboratory test finding 11/18/2013 Inr (Fma) 2.5 2.0-3.0 Laboratory test finding 10/18/2013 Inr (Fma) 2.2 2-3 Laboratory test finding 09/20/2013 Inr (Fma) 2.4 2-3 Laboratory test finding 08/15/2013 Inr (Fma) 2.1 2.0-3.0 Laboratory test finding 07/11/2013 Inr (Fma) 2.6 2.0-3.0 Laboratory test finding 06/14/2013 Inr (Fma) 2.7 2.0-3.0 Laboratory test finding 2013 Inr (Fma) 2.4 2.0-3.0 Laboratory test finding 04/17/2013 Inr (Fma) 2.3 2.0-3.0 Laboratory test finding 03/15/2013 Inr (Fma) 2.3 2.0-3.0 Laboratory test finding 03/15/2013 TSH 0.93 mIU/L 0.50-6.00 Free T4 1.29 ng/dL 0.75-1.54 Laboratory test finding 02/14/2013 Inr (Fma) 2.7 2.0-3.0 Laboratory test finding 01/17/2013 Inr (Fma) 1.8 Low 2-3 Laboratory test finding 12/20/2012 Inr (Fma) 2.4 2-3 Laboratory test finding 11/20/2012 Inr (Fma) 2.0 2-3 Laboratory test finding 10/19/2012 Inr (Fma) 2.3 2.0-3.0 Laboratory test finding 09/13/2012 Inr (Fma) 2.8 2.0-3.0 Laboratory test finding 08/13/2012 Inr (Fma) 2.4 2-3 Iron/Tibc,%Sat Group 07/18/2012 Iron 68 g/dL 30-158 13 Total Iron Binding Cap. 343 g/dL 250-450 13 % Iron Saturation 19.8 % 13.0-45.0 13 CBC Electronic (a) 07/18/2012 WBC 5.8 3.6-9.6 RBC 5.15 3.90-5.70 Hemoglobin (Fma/CMC/CTX) 12.7 g/dL 12.1 - 17.2 Hematocrit (Fma/CMC/CTX) 40.2 % 36.1 - 50.3 Platelets 357 10^3/ul 150-400 Lymph% 45.1 20.5-51.1 Mixed% 6.6 Neutrophils % 48.3 Mean Corpuscular Vol 78 Low 82.2-97.4 Mean Corpuscular Hemoglobin 24.7 Low 27.6-33.3 Mean Corpuscular Hemo Concen 31.6 Low 32.0-36.0 RDW 17.4 High 11.6-13.7 Mean Platelet Volume 7.5 6.5-11.0 Laboratory test finding 07/18/2012 Inr (Fma) 2.3 2.0-3.0 Laboratory test finding 06/28/2012 Inr (Fma) 3.5 High 2.0-3.0 Laboratory test finding 05/31/2012 Inr (Fma) 3.0 2.0-3.0 Laboratory test finding 2012 Inr (Fma) 2.5 2.0-3.0 Ict Hemoccult (Fma) 05/02/2012 Ict Hemoccult (1) neg Ict Hemoccult-(2) neg Ict-Hemoccult (3) neg Laboratory test finding 04/26/2012 Inr (Fma) 2.3 2-3 Laboratory test finding 04/13/2012 Inr (Fma) 1.6 Low 2.0-3.0 CBC Electronic (Fma) 04/13/2012 WBC 5.5 3.6-9.6 RBC 4.81 3.90-5.70 Hemoglobin (Fma/CMC/CTX) 10.8 g/dL Low 12.1 - 17.2 Hematocrit (Fma/CMC/CTX) 35.5 % Low 36.1 - 50.3 Platelets 371 10^3/ul 150-400 Lymph% 32.1 20.5-51.1 Mixed% 5.7 Neutrophils % 62.2 Mean Corpuscular Vol 74 Low 82.2-97.4 Mean Corpuscular Hemoglobin 22.4 Low 27.6-33.3 Mean Corpuscular Hemo Concen 30.3 Low 32.0-36.0 RDW 16.2 High 11.6-13.7 Mean Platelet Volume 8.3 6.5-11.0 Lipid Profile 04/13/2012 Cholesterol 189 mg/dL 120-200 HDL 41 mg/dL 30-85 Triglycerides 203 mg/dL High 30-200 HDL Risk Factor 4.6 CALC High 0.0-4.4 LDL (Calculated) 108 CALC 0-129 VLDL (Calculated) 41 mg/dL 0-50 Comprehensive Metabolic Prof 04/13/2012 Albumin 4.7 g/dL 3.8-5.5 Alk. Phos. 119 U/L High 30-110 14 Alt (SGPT) 24 U/L 7-35 Ast (Sgot) 21 U/L 5-34 BUN 17 mg/dL 6-26 Calcium 9.5 mg/dL 8.6-10.2 Chloride 102 mEq/L 94-112 Creatinine 1.1 mg/dL 0.6-1.4 Carbon Dioxide 24 mEq/L 21-32 Glucose 101 mg/dL 70-105 Sodium 134 mEq/L 134-149 Total Bilirubin 0.3 mg/dL 0.2-1.3 Total Protein 7.4 g/dL 6.3-8.1 Potassium 4.2 mEq/L 3.6-5.5 Globulin 2.7 g/dL 2.0-4.8 A/G Ratio 1.7 Calc 0.6-2.2 BUN/Creat Ratio 15.5 Calc 8.0-36.0 Laboratory test finding 04/13/2012 TSH 0.69 mIU/L 0.50-6.00 Free T4 1.26 ng/dL 0.75-1.54 Laboratory test finding 03/01/2012 Inr (Fma) 1.8 Low 2-3 Laboratory test finding 01/31/2012 Inr (Fma) 2.9 2.0-3.0 Laboratory test finding 01/03/2012 Inr (Fma) 2.8 2.0-3.0 Laboratory test finding 12/01/2011 Inr (Fma) 2.3 2.0-3.0 Laboratory test finding 11/10/2011 Inr (Fma) 1.8 Low 2.0-3.0 Laboratory test finding 10/10/2011 Inr (Fma) 2.4 2.0-3.0 Laboratory test finding 09/08/2011 Inr (Fma) 2.4 2-3 Laboratory test finding 08/08/2011 Inr (Fma) 3.0 2.0-3.0 Laboratory test finding 07/08/2011 Inr (Fma) 2.4 2-3 Laboratory test finding 06/09/2011 Inr (Fma) 2.4 2.0-3.0 Laboratory test finding 05/12/2011 Inr (Fma) 2.5 2-3 Laboratory test finding 04/12/2011 Free T4 1.15 ng/dL 0.75-1.54 TSH 2.68 mIU/L 0.50-6.00 LDL (Direct) 134 mg/dL High 0-130 Lipid Profile 04/12/2011 Cholesterol 216 mg/dL High 120-200 HDL 53 mg/dL 30-85 Triglycerides 275 mg/dL High 30-200 HDL Risk Factor 4.1 CALC High 0.0-4.0 LDL (Calculated) 109 CALC 0-129 15 VLDL (Calculated) 55 mg/dL High 0-50 Laboratory test finding 04/12/2011 Inr (Fma) 2.0 2.0-3.0 Laboratory test finding 03/11/2011 Inr (Fma) 2.2 2.0-3.0 Laboratory test finding 02/07/2011 Inr (Fma) 2.1 2-3 Laboratory test finding 01/06/2011 Inr (Fma) 2.8 2-3 Laboratory test finding 12/08/2010 Inr (Fma) 2.6 2.0-3.0 Laboratory test finding 11/08/2010 Inr (Fma) 2.8 2.0-3.0 Laboratory test finding 10/06/2010 Inr (Fma) 2.6 2-3 Laboratory test finding 09/09/2010 LDL (Direct) 150 mg/dL High 0-130 Comprehensive Metabolic Prof 09/09/2010 Albumin 4.2 g/dL 3.8-5.5 Alk. Phos. 93 U/L 30-110 Alt (SGPT) 22 U/L 7-35 Ast (Sgot) 20 U/L 5-34 BUN 19 mg/dL 6-26 Calcium 9.1 mg/dL 8.6-10.2 Chloride 98 mEq/L 94-112 Creatinine 1.1 mg/dL 0.6-1.4 Carbon Dioxide 23 mEq/L 21-32 Glucose 98 mg/dL 70-105 Sodium 136 mEq/L 134-149 Total Bilirubin 0.2 mg/dL 0.2-1.3 Total Protein 7.0 g/dL 6.3-8.1 Potassium 3.9 mEq/L 3.6-5.5 Globulin 2.8 g/dL 2.0-4.8 A/G Ratio 1.5 Calc 0.6-2.2 BUN/Creat Ratio 17.3 Calc 8.0-36.0 Lipid Profile 09/09/2010 Cholesterol 258 mg/dL High 120-200 HDL 39 mg/dL 30-85 Triglycerides 314 mg/dL High 30-200 HDL Risk Factor 6.6 CALC High 0.0-4.0 LDL (Calculated) 156 CALC High 0-129 16 VLDL (Calculated) 63 mg/dL High 0-50 Laboratory test finding 09/09/2010 TSH 5.75 mIU/L 0.50-6.00 Free T4 0.69 ng/dL Low 0.75-1.54 17 CBC Electronic (a) 09/09/2010 WBC 4.4 3.6-9.6 RBC 5.11 3.90-5.70 Hemoglobin (Fma/CMC/CTX) 12.9 g/dL 12.1 - 17.2 Hematocrit (Fma/CMC/CTX) 41.1 % 36.1 - 50.3 Platelets 421 10^3/ul High 150-400 Lymph% 37.5 20.5-51.1 Mixed% 6.3 Neutrophils % 56.2 Mean Corpuscular Vol 80 Low 82.2-97.4 Mean Corpuscular Hemoglobin 25.3 Low 27.6-33.3 Mean Corpuscular Hemo Concen 31.5 Low 32.0-36.0 RDW 12.8 11.6-13.7 Mean Platelet Volume 7.8 6.5-11.0 Laboratory test finding 09/06/2010 Inr (Fma) 2.4 2.0-3.0 Laboratory test finding 08/06/2010 Inr (Fma) 2.0 2.0-3.0 Laboratory test finding 07/09/2010 Inr (Fma) 2.2 2-3 Laboratory test finding 06/08/2010 Inr (Fma) 2.7 2.0-3.0 Laboratory test finding 05/06/2010 Inr (Fma) 2.7 2.0-3.0 Laboratory test finding 04/06/2010 Inr (Fma) 3.1 High 2.0-3.0 Laboratory test finding 03/05/2010 Inr (Fma) 2.2 2.0-3.0 Laboratory test finding 02/04/2010 TSH 0.29 mIU/L Low 0.50-6.00 18 Free T4 1.14 ng/dL 0.75-1.54 Laboratory test finding 02/04/2010 Inr (Fma) 2.7 2-3 Laboratory test finding 01/04/2010 Inr (Fma) 2.1 2.0-3.0 Laboratory test finding 12/04/2009 TSH < 0.01 mIU/L Low 0.50-6.00 19 Free T4 1.95 ng/dL High 0.75-1.54 Laboratory test finding 12/04/2009 Inr (Fma) 2.7 2.0-3.0 Laboratory test finding 10/29/2009 Inr (Fma) 2.7 2-3 Laboratory test finding 10/08/2009 Inr (Fma) 2.5 2.0-3.0 Laboratory test finding 09/24/2009 Inr (Fma) 2.2 2-3 Laboratory test finding 09/14/2009 Inr (Fma) 1.4 Low 2-3 Laboratory test finding 09/02/2009 TSH < 0.01 mIU/L Low 0.50-6.00 Free T4 1.94 ng/dL High 0.75-1.54 Laboratory test finding 08/31/2009 Inr (Fma) 3.3 High 2-3 Laboratory test finding 07/30/2009 Inr (Fma) 2.1 2-3 Laboratory test finding 07/02/2009 Inr (Fma) 3.0 2.0-3.0 Laboratory test finding 06/16/2009 TSH < 0.01 mIU/L Low 0.50-6.00 Free T4 3.03 ng/dL High 0.75-1.54 LDL (Direct) 98 mg/dL 0-130 Comprehensive Metabolic Prof 06/16/2009 Albumin 4.4 g/dL 3.8-5.5 Alk. Phos. 113 U/L High 30-110 20 Alt (SGPT) 26 U/L 7-35 Ast (Sgot) 27 U/L 5-34 BUN 16 mg/dL 6-26 Calcium 9.3 mg/dL 8.6-10.2 Chloride 103 mEq/L 94-112 Creatinine 1.0 mg/dL 0.6-1.4 Carbon Dioxide 25 mEq/L 21-32 Glucose 88 mg/dL 70-105 Sodium 140 mEq/L 134-149 Total Bilirubin 0.3 mg/dL 0.2-1.3 Total Protein 7.5 g/dL 6.3-8.1 Potassium 4.8 mEq/L 3.6-5.5 Globulin 3.1 g/dL 2.0-4.8 A/G Ratio 1.4 Calc 0.6-2.2 BUN/Creat Ratio 16.3 Calc 8.0-36.0 Lipid Profile 06/16/2009 Cholesterol 190 mg/dL 120-200 HDL 37 mg/dL 30-85 Triglycerides 285 mg/dL High 30-200 HDL Risk Factor 5.1 CALC 4.2-7.0 LDL (Calculated) 96 CALC 0-129 VLDL (Calculated) 57 mg/dL High 0-50 Laboratory test finding 06/04/2009 Inr (Fma) 2.9 2.0-3.0 Laboratory test finding 05/14/2009 Inr (Fma) 3.0 2.0-3.0 Laboratory test finding 04/16/2009 Inr (Fma) 2.6 2.0-3.0 Laboratory test finding 03/19/2009 Inr (Fma) 2.5 2.0-3.0 Laboratory test finding 02/26/2009 Inr (Fma) 2.1 2-3 Laboratory test finding 02/12/2009 Inr (Fma) 3.1 High 2.0-3.0 Laboratory test finding 01/29/2009 Inr (Fma) 2.2 2.0-3.0 Laboratory test finding 01/22/2009 Inr (Fma) 2.2 2.0-3.0 Laboratory test finding 01/19/2009 Inr (Fma) 1.5 Low 2.0-3.0 Laboratory test finding 01/16/2009 Inr (Fma) 1.3 Low 2.0-3.0 Laboratory test finding 01/12/2009 Inr (Fma) 1.3 Low 2.0-3.0 Laboratory test finding 01/09/2009 Inr (Fma) 1.8 Low 2.0-3.0 Comp Metabolic Panel 01/07/2009 Sodium 140 mmol/L 135-145 Potassium 3.7 mmol/L 3.5-5.0 Chloride 105 mmol/L 101-111 Co2 (Carbon Dioxide) 28.0 mmol/L 22-32 Anion Gap 7.0 mmol/L 2-11 21 Glucose 89 mg/dL 70-100 22 BUN 9 mg/dL 6-24 Creatinine 1.00 mg/dL 0.50-1.40 One Over Creatinine 1.00 BUN/Creatinine Ratio 9.0 8-20 Calcium 8.7 mg/dL 8.1-9.9 23 Total Protein 6.8 GM/DL 6.2-8.1 Albumin 3.2 GM/DL 3.2-5.2 Globulin 3.6 GM/DL 2-4 Albumin/Globulin Ratio 0.9 Low 1-3 Bilirubin Total 0.3 mg/dL Low 0.4-1.5 24 Alkaline Phosphatase 181 U/L High 30-110 Alt (SGPT) 79 U/L High 14-54 Ast (Sgot) 58 U/L High 12-42 eGFR Non- 58.8 > 60 eGFR 71.1 > 60 25 Laboratory test finding 01/07/2009 Thyroxine Free 1.32 NG/ML High 0.61- 1.24 26 Ua - Micro (Fma) 09/20/2006 Appearance CLEAR Color LT YELLOW Glucose NEG Bilirubin NEG Ketones NEG SP Grav 1.015 Blood NEG PH 5.5 Protein, Random Urine NEG Urobil 0.2 Nitrite NEG Leukocytes (a/CMC/[facility]) TRACE Hyaline - /Lpf Granular - /Lpf WBC ([facility]) 2-4 RBC, Fluid 0-3 Mucus - /Lpf Epith OCC /Lpf Bacteria - /Hpf Amorphous - /Lpf Crystals, Urine (a/CMC/CTX) - /Lpf Misc - CBC Electronic ([facility]) 01/28/2003 WBC 7.7 3.6-9.6 Lymphocytes 26.6 % 20.5 - 51.1 Monocytes 5.0 % 1.7-9.3 Granulocytes 68.4 % 42.2 - 75.2 Lymphocytes 2.0 10^3/uL 0.7 - 4.9 Monocytes 0.4 10^3/uL 0.1 - 0.9 Granulocytes 5.3 10^3/uL 1.5 - 7.2 RBC 5.84 High 3.90-5.70 Hemoglobin (a/CMC/CTX) 15.3 g/dL 12.1 - 17.2 Hematocrit (a/CMC/CTX) 46.1 % 36.1 - 50.3 Mean Corpuscular Vol 79.0 Low 82.2-97.4 Mean Corpuscular Hemaglobin 26.2 Low 27.6-33.3 Mean Corpuscular Hemo Concen 33.1 33.0-34.8 RDW 14.0 High 11.6-13.7 Platelets 384. 10^3/ul 150-400 Mean Platelet Volume 8.8 7.4-10.4 Free T4/TSH [place] [place] 01/28/2003 TSH 5.80 uIU/ml 0.5-6.0 Free T4 1.06 ng/dL 0.75-1.54 Laboratory test finding 06/21/2002 Urine Culture FINAL 27 Laboratory test finding 06/21/2002 Herpes, Viral Culture NONE ISOLATED ([facility]) Ua - Non Micro ([facility]) 06/21/2002 Appearance CLEAR YELLOW Glucose - Bilirubin - Ketones - SP Grav >=1.005 Blood - PH 5.5 Protein - Urobil 0.2 Nitrite - Leukocytes - Ua - Non Micro ([facility]) 06/21/2002 Appearance CLEAR YELLOW Glucose - Bilirubin - Ketones - SP Grav <=1.005 Blood - PH 5.5 Protein - Urobil 0.2 Nitrite - Leukocytes - Ua - Micro ([facility]) 06/11/2002 Appearance CLEAR LT YELLOW Glucose NEGATIVE Bilirubin NEGATIVE Ketones NEGATIVE SP Grav <=1.005 Blood TRACE-LYSED PH 6.5 Protein NEGATIVE Urobil 0.2 Nitrite NEGATIVE Leukocytes NEGATIVE Hyaline - /Lpf Granular - /Lpf WBC'S 0-1 RBC'S - Mucus - /Lpf Epith MOD Bacteria TR Amorphous - /Lpf Crystals - /Lpf Comments - [place] [place] 06/08/2002 Color YELLOW Appearance HAZY SP Grav 1.002 Low 1.010-1.030 Esterase NEG Negative Nitrite NEG Negative Urobil NEG Negative Protein NEG Negative PH 7.0 5-9 Blood TRACE High Negative Ketones 1+ High Negative Bilirubin, Micro NEG Negative Glucose NEG Negative WBC'S 0-2 RBC'S 0-2 Epith MODERATE Bacteria 1+ Ua - Micro ([facility]) 06/05/2002 Appearance CLEAR/YELLOW Glucose NEG Bilirubin NEG Ketones TRACE SP Grav 1.010 Blood TRACE-INTACT PH 5.0 Protein NEG Urobil 0.2 Nitrite NEG Leukocytes NEG Hyaline - /Lpf Granular - /Lpf WBC'S 0-3 RBC'S 0-3 Mucus - /Lpf Epith MANY Bacteria 1-2+ Amorphous - /Lpf Crystals - /Lpf Comments - Ua - Non Micro ([facility]) 05/23/2002 Appearance CLEAR YELLOW Glucose NEGATIVE Bilirubin NEGATIVE Ketones NEGATIVE SP Grav >=1.030 Blood NEGATIVE PH 6.0 Protein 1+ Urobil 0.2 Nitrite NEGATIVE Leukocytes TRACE Laboratory test finding 05/23/2002 Comments SEE DETAILS 28 Urine Culture (a/CMC/CTX) POSITIVE Ua - Micro ([facility]) 04/12/2002 Appearance CLEAR YELLOW Glucose NEGATIVE Bilirubin NEGATIVE Ketones NEGATIVE SP Grav >=1.030 Blood NEGATIVE PH 5.0 Protein NEGATIVE Urobil 0.2 Nitrite NEGATIVE Leukocytes 1+ Hyaline - /Lpf Granular - /Lpf WBC'S 5 RBC'S 5 Mucus - /Lpf Epith FEW Bacteria 5-10 Amorphous - /Lpf Crystals - /Lpf Comments - CBC With Manual Dif ([facility]) 07/17/2001 WBC 4.6 3.6-9.6 RBC 5.87 High 3.90-5.70 Hemoglobin 15.3 g/dL 12.1 - 17.2 Hematocrit 45.3 % 36.1 - 50.3 Mean Corpuscular Vol 77.1 Low 82.2-97.4 Mean Corpuscular Hemaglobin 26.1 Low 27.6-33.3 Mean Corpuscular Hemo Concen 33.8 33.0-34.8 RDW 13.0 11.6-13.7 Platelets 442 10^3/ul High 150-400 Mean Platelet Volume 7.9 7.4-10.4 Neutrophils - Band - Lymph From [facility] - Monocytes - % Low 1.7-9.3 Eosinophils - Basophils - Metamyelocytes - Myelocytes - Promyelocyte - Blast - Atypical Lymph - NRBC - Morphology - Comments - Laboratory test finding 07/17/2001 Poikilocytosis SLT Microcytosis SLT Platelet Eval SEE DETAILS 29 1 Result verified 2 Result verified 3 INVALID 4 consistent w/ previous results 5 consistent w/ previous results 6 consistent w/ previous results 7 RESULTS VERIFIED BY REPEAT ANALYSIS 8 RESULTS VERIFIED BY REPEAT ANALYSIS 9 RESULTS VERIFIED BY REPEAT ANALYSIS 10 RESULTS VERIFIED BY REPEAT ANALYSIS 11 RESULTS VERIFIED BY REPEAT ANALYSIS 12 consistant with previous 13 1sst 14 result grace'd 15 invalid 16 invalid 17 RESULT GRACE'D 18 RESULT GRACE'D 19 FASTING 20 RESULT GRACE'D 21 Anion gap measurement may be of limited value in the presence of any alkalosis, especially in a combined acid base disorder. . 22 Note change in reference range as of 01/17/08. The change was based on recommendations from the [place] [employer]. 23 Please note change in reference range effective 07 . 24 A metabolite of Naproxen, O-desmethylnaproxen, has been shown to interfere with the Jendrassik-Rolan method for measuring total bilirubin. Samples from patients who have taken Naproxen have shown spurious elevation in total bilirubin levels. 25 Because ethnic data is not always readily available, this report includes an eGFR for both -Americans and non- Americans. The National Kidney Disease Education Program (NKDEP) does not endorse the use of the MDRD equation for patients that are not between the ages of 18 and 70, are , have extremes of body size, muscle mass, or nutritional status, or are non- or non-. According to the National Kidney Foundation, irrespective of diagnosis, the stage of the disease is based on the level of kidney function: Stage Description GFR(mL/min/1.73 m(2)) 1 Kidney damage with normal or decreased GFR 90 2 Kidney damage with mild decrease in GFR 60-89 3 Moderate decrease in GFR 30-59 4 Severe decrease in GFR 15-29 5 Kidney failure <15 (or dialysis) 26 PLEASE NOTE NEW REFERENCE RANGES. 27 Source: URINE,VOIDED No growth. 28 NOT ENOUGH URINE FOR MICRO 29 PLATELETS SLIGHTLY INCREASED ON SMEAR Procedures Date CPT Code Description Status 06/23/2017 65536 Finger Or Heel Stick Completed 05/19/2017 [id number] Finger Or Heel Stick Completed 04/13/2017 21077 Finger Or Heel Stick Completed 01/31/2017 24284 Finger Or Heel Stick Completed 12/30/2016 83229 Finger Or Heel Stick Completed 11/30/2016 30032 Finger Or Heel Stick Completed 11/02/2016 03988 Finger Or Heel Stick Completed 10/10/2016 19853 Finger Or Heel Stick Completed 09/09/2016 68483 Finger Or Heel Stick Completed 08/15/2016 91934 Finger Or Heel Stick Completed 07/18/2016 50183 Finger Or Heel Stick Completed 06/20/2016 60745 Finger Or Heel Stick Completed 06/06/2016 41843 Finger Or Heel Stick Completed 05/16/2016 69266 Finger Or Heel Stick Completed 04/25/2016 95779 Finger Or Heel Stick Completed 04/11/2016 38264 Finger Or Heel Stick Completed 01/06/2016 00371 Finger Or Heel Stick Completed 12/01/2015 86605 Finger Or Heel Stick Completed 10/30/2015 15423 Finger Or Heel Stick Completed 09/29/2015 92843 Finger Or Heel Stick Completed 09/08/2015 17154 Finger Or Heel Stick Completed 08/25/2015 01934 Finger Or Heel Stick Completed 08/18/2015 62583 Finger Or Heel Stick Completed 07/20/2015 29471 Finger Or Heel Stick Completed 06/10/2015 74628 Finger Or Heel Stick Completed 05/27/2015 76111 Finger Or Heel Stick Completed 04/27/2015 52412 Finger Or Heel Stick Completed 02/05/2015 76012 Finger Or Heel Stick Completed 01/05/2015 01439 Finger Or Heel Stick Completed 12/03/2014 98292 Finger Or Heel Stick Completed 11/17/2014 05754 Finger Or Heel Stick Completed 10/16/2014 13402 Finger Or Heel Stick Completed 09/15/2014 07853 Finger Or Heel Stick Completed 08/14/2014 42401 Finger Or Heel Stick Completed 07/17/2014 96829 Finger Or Heel Stick Completed 05/23/2014 07603 Finger Or Heel Stick Completed 05/08/2014 45375 Finger Or Heel Stick Completed 04/22/2014 22147 Finger Or Heel Stick Completed 03/17/2014 09411 Finger Or Heel Stick Completed 02/17/2014 51869 Finger Or Heel Stick Completed 01/17/2014 54174 Finger Or Heel Stick Completed 12/17/2013 31919 Finger Or Heel Stick Completed 11/18/2013 07371 Finger Or Heel Stick Completed 10/18/2013 57591 Finger Or Heel Stick Completed 09/20/2013 74712 Finger Or Heel Stick Completed 08/15/2013 04527 Finger Or Heel Stick Completed 07/11/2013 41745 Finger Or Heel Stick Completed 06/14/2013 48126 Finger Or Heel Stick Completed 2013 47869 Finger Or Heel Stick Completed 04/17/2013 14676 Finger Or Heel Stick Completed 02/14/2013 55007 Finger Or Heel Stick Completed 01/17/2013 38700 Finger Or Heel Stick Completed 12/20/2012 96276 Finger Or Heel Stick Completed 11/20/2012 83946 Finger Or Heel Stick Completed 10/19/2012 52084 Finger Or Heel Stick Completed 09/13/2012 40284 Finger Or Heel Stick Completed 08/13/2012 52540 Finger Or Heel Stick Completed 06/28/2012 93038 Finger Or Heel Stick Completed 05/31/2012 01774 Finger Or Heel Stick Completed 2012 30926 Finger Or Heel Stick Completed 04/26/2012 64337 Finger Or Heel Stick Completed 03/01/2012 23315 Finger Or Heel Stick Completed 01/31/2012 14226 Finger Or Heel Stick Completed 01/03/2012 61577 Finger Or Heel Stick Completed 12/01/2011 06178 Finger Or Heel Stick Completed 11/10/2011 25014 Finger Or Heel Stick Completed 10/10/2011 02870 Finger Or Heel Stick Completed 09/08/2011 84538 Finger Or Heel Stick Completed 08/08/2011 66177 Finger Or Heel Stick Completed 07/08/2011 80287 Finger Or Heel Stick Completed 06/09/2011 90169 Finger Or Heel Stick Completed 05/12/2011 37668 Finger Or Heel Stick Completed 03/11/2011 16672 Finger Or Heel Stick Completed 02/07/2011 17886 Finger Or Heel Stick Completed 01/06/2011 22358 Finger Or Heel Stick Completed 12/08/2010 23341 Finger Or Heel Stick Completed 11/08/2010 69834 Finger Or Heel Stick Completed 10/06/2010 23415 Finger Or Heel Stick Completed 09/06/2010 73471 Finger Or Heel Stick Completed 08/06/2010 03876 Finger Or Heel Stick Completed 07/09/2010 90316 Finger Or Heel Stick Completed 06/08/2010 26470 Finger Or Heel Stick Completed 05/06/2010 83279 Finger Or Heel Stick Completed 04/06/2010 99617 Finger Or Heel Stick Completed 03/05/2010 67759 Finger Or Heel Stick Completed 12/02/2003 49221 I & D Abscess Simple Completed Encounters Type Date Location Provider CPT E/M Dx Office Visit 11/02/2016 1:10p [facility] Fabián Santos M.D. 18000 J01.00 Z79.01 I26.99 Office Visit 09/09/2016 1:00p [facility] aFbián Santos M.D. 19529 Z79.01 I26.99 E03.9 E78.5 Office Visit 03/10/2016 11:20a Main Office Fabián Santos M.D. 11929 Z23 E03.9 E78.5 I26.99 Z79.01 E78.1 Z23 Office Visit 03/27/2015 9:10a [facility] Office Fabián Santos M.D. 58986 Z79.01 I26.99 E03.9 E78.5 G25.0 Z23 Office Visit 12/15/2014 1:00p [facility] Office Fabián Santos M.D. 07874 V58.61 244.9 272.4 Office Visit 06/16/2014 2:20p [facility] Office Fabián Santos M.D. 00922 285.9 244.9 272.4 272.1 Office Visit 06/16/2014 2:15p [facility] Office Fabián Santos M.D. 84624 v58.61 415.19 285.9 244.9 272.4 Office Visit 03/15/2013 2:40p [facility] Office Fabián Santos M.D. 09105 244.9 V58.61 719.46 415.19 Office Visit 08/13/2012 1:20p [facility] Office Fabián Santos M.D. 40978 V58.61 244.9 415.19 Office Visit 07/18/2012 2:10p [facility] Office Fabián Santos M.D. 46242 V58.61 285.9 415.19 Office Visit 04/13/2012 10:10a [facility] Office Fabián Santos M.D. 30403 V58.61 272.4 244.9 415.19 Office Visit 10/17/2011 1:20p [facility] Office Fabián Santos M.D. 49218 272.4 244.9 Office Visit 03/11/2011 11:10a [facility] Office Fabián Santos M.D. 20975 V04.81 V03.82 v58.61 415.19 244.9 272.4 Office Visit 09/09/2010 8:10a [facility] Office Fabián Santos M.D. 67278 244.9 272.4 780.79 272.1 Office Visit 12/04/2009 11:10a [facility] Office Fabián Santos M.D. 25120 V58.61 244.9 415.19 Office Visit 09/02/2009 9:40a [facility] Office Fabián Santos M.D. 34909 244.9 Office Visit 06/16/2009 9:10a [facility] Fabián Santos M.D. 96023 415.19 272.4 244.9 272.1 Office Visit 03/04/2009 6:00p [facility] Office Fabián Santos M.D. 67247 415.19 V58.61 Office Visit 01/12/2009 3:20p Main Office Fabián Santos M.D. 18450 V58.61 415.19 673.80 Office Visit 08/28/2008 11:30a [facility] KENZIE Bailey 85232 300.00 780.52 477.9 Office Visit 04/26/2007 1:30p [facility] KENZIE Bailey 65770 300.00 780.52 Office Visit 10/24/2006 2:45p Main Office Donna Smith [facility] 66836 465.9 Office Visit 09/20/2006 2:20p Main Office Fabián Santos M.D. 19697 366.9 788.1 V72.83 Office Visit 12/15/2005 3:15p Main Office Tali Del Cid Mattromelia-C 87340 680.8 Office Visit 12/12/2005 4:15p Main Office Tali Del Cid Afnp-C 79476 680.8 Office Visit 03/20/2004 10:15a Main Office Donna Smith, [facility] 58682 719.46 Office Visit 03/02/2004 1:15p Main Office Donna Josephronni [facility] 41912 719.46 Office Visit 02/19/2004 7:50p Main Office Baron Green M.D. 17183 686.9 Office Visit 12/08/2003 4:00p Main Office Donnalucy GarrisonSarah, [facility] 09371 682.6 Office Visit 12/06/2003 9:30a Main Office Donna Smith [facility] 02999 682.6 Office Visit 11/28/2003 2:10p Main Office Siddharth Brock M.D. 95877 682.9 682.6 Office Visit 05/10/2003 11:10a Main Office Fabián Santos M.D. 83949 473.9 Office Visit 02/11/2003 11:20a Main Office Adrián Davidson M.D. 94010 300.00 311 Office Visit 01/28/2003 9:20a Main Office Adrián Davidson M.D. 45951 300.00 300.4 790.99 Office Visit 01/07/2003 12:20p Main Office Adrián Davidson M.D. 56113 300.4 300.00 Office Visit 09/10/2002 2:00p Main Office Adrián Davidson M.D. 12338 465.9 Office Visit 08/29/2002 10:40a Main Office Emmanuel Santo M.D. 50644 466.0 Office Visit 08/01/2002 3:30p Main Office Tali Velezbeatrice Afnp-C 85430 616.10 Office Visit 06/26/2002 2:20p Main Office Siddharth Brock M.D. 74826 616.10 300.00 Office Visit 06/21/2002 2:15p Main Office Tali VelezAislinn barron 42329 616.10 Office Visit 06/11/2002 1:00p Main Office Tali NehemiasAislinn dixon 67799 599.0 Office Visit 06/05/2002 1:10p Main Office Siddharth Brock M.D. 20598 599.0 Office Visit 05/23/2002 11:00a Main Office Tali VelezAustin barron-Tristen 42751 599.0 627.3 789.03 789.04 Office Visit 04/12/2002 11:00a Main Office Adrián Davidson M.D. 90613 599.0 Office Visit 10/02/2001 4:15p [facility] Office Austin Pritchard-C 91856 Office Visit 07/26/2001 6:30p Main Office KENZIE Bailey 56986 Office Visit 07/20/2001 11:00a Main Office KENZIE Bailey 80923 Office Visit 07/17/2001 9:00a Main Office Austin Pritchard-C 36548 Office Visit 07/12/2001 10:15a Main Office KENZIE Bailey 82470 Office Visit 09/11/2000 10:00a Main Office Kash Lyons M.D. 97441 Office Visit 09/05/2000 1:00p Main Office Austin Mullins-C 99564 Office Visit 08/25/2000 11:00a Main Office Fabián Santos M.D. 57147 Plan of Care Future Appointment(s):07/24/2017 1:30 pm - Fabián Santos M.D. at Main [place]5807/18/2017 - Austin Pritchard-CR19.7 Diarrhea, unspecifiedFollow up: Followup:. (Follow up)AllComments:~B_~U_Medication Management~b_~u_ Patient Understands medications she's taking? Yes No Are there Barriers to Adherence? Yes No Has the patient been asked about herbal supplements and therapies, and OTC meds? Yes No ~B_~U_Care Plan~b_~u_1. Patient has been queried about patient's goals/preferences and functional/ lifestyle goals at relevant visits. If relevant, describe: na2. Treatment goals as explained to the patient: abovesx rx and resolution 3. Are there barriers to meeting treatment goals? Yes No If Yes, please describe:4. Self-Management goals as described to the patient: Yes No stop the doxycycline , ensure adequate fluids , drink fluids other than water , ok to try immodium , also soups, toast , riice , bananaslet us know if are not improving over the next 2-3 days
[2017-07-20 12:32] LABS: Hematocrit 35 % (35-47); Hemoglobin 11.4 g/dl (12.0-16.0); Mean Corpuscular HGB Conc 32 g/dl (31-36); Mean Corpuscular Hemoglobin 23 pg (27-31); Mean Corpuscular Volume 71 fL (80-97); Mean Platelet Volume 7 um3 (7.4-10.4); Platelet Count 529 10^3/ul (150-450); Red Blood Count 4.99 10^6/ul (4.0-5.4); Red Cell Distribution Width 16 % (10.5-15); White Blood Count 7.6 10^3/ul (3.5-10.8)
[2017-07-20 12:46] LABS: INR 6.06 (0.77-1.02)
[2017-07-20 12:49] LABS: EGFR Non-African American 66.8 (>60)
[2017-07-20 13:00] LABS: ABS Basophils 0.1 10^3/ul (0-0.2); ABS Eosinophils 0 10^3/ul (0-0.6); ABS Lymphocytes 1.3 10^3/ul (1.0-4.8); ABS Monocytes 0.9 10^3/ul (0-0.8); ABS Neutrophils 5.4 10^3/ul (1.5-7.7); ABS Nucleated RBC 0 10^3/ul; Eosinophil % 0 % (0-6); Nucleated Red Blood Cells % 0
--- NOTE | 2017-07-20 13:01 | RAD ---
INDICATION: Weakness COMPARISON: Chest x-ray 2008 TECHNIQUE: PA and lateral dual-energy views were obtained. FINDINGS: Bones/Soft Tissues: There are no acute bony findings. Cardiomediastinal: The cardiomediastinal silhouette is normal. Lungs: There is linear change in the lingular segment most consistent with atelectasis. There are minimal left lower lobe abnormalities which are improved relative to the earlier study. . Pleura: There are no significant effusions. Other: There is a moderate-sized hilar hernia IMPRESSION: Mild atelectasis, scarring, or infiltrate in the lingula and left lower lobe with mild improvement.
--- NOTE | 2017-07-20 15:11 | ED ---
Joel Mejia Stephanie, scribed for Emmanuel Flaherty MD on 07/20/17 at 1200 . Complex/Multi-Sys Presentation - HPI Summary HPI Summary: The pt is a 77 y/o F presenting to the ED with c/o feeling ill for the past month. Symptoms include lightheadedness, dizziness, and poor balance. The pt states she visited her PCP 2 days ago and had blood work and a CXR. The pt received a call from her PCP this morning and was advised to go to the ED. - History Of Current Complaint Chief Complaint: EDGeneral Time Seen by Provider: 07/20/17 11:33 Hx Obtained From: Patient Onset/Duration: Gradual Onset, Lasting Weeks - 4, Still Present Timing: Constant Associated Signs And Symptoms: Positive: Dizziness, Other - lightheadedness, loss of balance - Allergies/Home Medications Allergies/Adverse Reactions: Allergies Allergy/AdvReac Type Severity Reaction Status Date / Time No Known Allergies Allergy Verified 10/24/16 10:19 Home Medications: Home Medications Simvastatin TAB(NF) [Zocor(NF)] 10 mg PO DAILY 07/20/17 [History Confirmed 07/20] Warfarin TAB(*) [Coumadin TAB(*)] 6 mg PO .SUTUTHSA 07/20/17 [History Confirmed 07/20/17] PMH/Surg Hx/FS Hx/Imm Hx Endocrine/Hematology History: Reports: Hx Anticoagulant Therapy - Warfarin., Hx Thyroid Disease Denies: Hx Diabetes Cardiovascular History: Reports: Hx Hypertension Denies: Hx Congestive Heart Failure, Hx Deep Vein Thrombosis, Hx Myocardial Infarction, Hx Pacemaker/ICD Respiratory History: Reports: Hx Pulmonary Embolism - "years ago" of the left lung, on warfarin since. Denies: Hx Asthma, Hx Chronic Obstructive Pulmonary Disease (COPD), Hx Lung Cancer, Hx Pneumonia GI History: Denies: Hx Gall Bladder Disease, Hx Gastrointestinal Bleed, Hx Ulcer, Hx Urosepsis History: Denies: Hx Kidney Stones, Hx Renal Disease Neurological History: Denies: Hx Dementia, Hx Migraine, Hx Seizures, Hx Transient Ischemic Attacks (TIA) Psychiatric History: Reports: Hx Anxiety, Hx Depression Denies: Hx Schizophrenia, Hx Bipolar Disorder - Surgical History Surgery Procedure, Year, and Place: d/c Infectious Disease History: No Infectious Disease History: Denies: Hx Clostridium Difficile, Hx Hepatitis, Hx Human Immunodeficiency Virus (HIV), Hx of Known/Suspected MRSA, Hx Shingles, Hx Tuberculosis, Hx Known/ Suspected VRE, Hx Known/Suspected VRSA, History Other Infectious Disease, Traveled Outside the [place] in Last 30 Days - Family History Known Family History: Positive: Hypertension Negative: Cardiac Disease - Social History Occupation: Retired Lives: Alone Alcohol Use: None Substance Use Type: Reports: None Smoking Status (MU): Former Smoker Review of Systems Positive: Other - loss of balance. Negative: Fever Neurological: Other - dizziness, lightheadedness All Other Systems Reviewed And Are Negative: Yes Physical Exam - Summary Physical Exam Summary: Appearance: The patient is well-nourished in no acute distress and in no acute pain. Skin: The skin is warm and dry and skin color reflects adequate perfusion. HEENT: The head is normocephalic and atraumatic. The pupils are equal and reactive. The conjunctivae are clear and without drainage. Nares are patent and without drainage. Mouth reveals dry mucus membranes and the throat is without erythema and exudate. The external ears are intact. The ear canals are patent and without drainage. The tympanic membranes are intact. Neck: the neck is supple with full range of motion and non-tender. There are no carotid bruits. There is no neck vein distension. Respiratory: Chest is non-tender, crackles profusely over lung umanozr bilaterally, Breath sounds are symmetrical and equal. Cardiovascular: Heart is regular rate and rhythm. There is no murmur or rub auscultated. There is no peripheral edema and pulses are symmetrical and equal. Abdomen: The abdomen is soft and non-tender. There are normal bowel sounds heard in all four quadrants and there is no organomegaly palpated. Musculoskeletal: There is no back tenderness noted. Extremities are non-tender with full range of motion. There is good capillary refill. There is no peripheral edema or calf tenderness elicited. Neurological: Patient is alert and oriented to person, place and time. The patient has symmetrical motor strength in all four extremities. Cranial nerves are grossly intact. Deep tendon reflexes are symmetrical and equal in all four extremities. Psychiatric: The patient has an appropriate affect and does not exhibit any anxiety or depression. Triage Information Reviewed: Yes Vital Signs On Initial Exam: Initial Vitals Temp Pulse Resp BP Pulse Ox 97.4 F 100 17 124/58 98 07/20/17 11:21 07/20/17 11:21 07/20/17 11:21 07/20/17 11:21 07/20/17 11:21 Vital Signs Reviewed: Yes Diagnostics - Vital Signs Vital Signs Temp Pulse Resp BP Pulse Ox 07/20/17 11:21 97.4 F 100 17 124/58 98 - Laboratory Lab Results: Lab Results 07/20/17 07/20/17 07/20/17 Range/Units 12:16 12:16 12:16 WBC 7.6 (3.5-10.8) 10^3/ul RBC 4.99 (4.0-5.4) 10^6/ul Hgb 11.4 L (12.0-16.0) g/dl Hct 35 (35-47) % MCV 71 L (80-97) fL MCH 23 L (27-31) pg MCHC 32 (31-36) g/dl RDW 16 H (10.5-15) % Plt Count 529 H (150-450) 10^3/ul MPV 7 L (7.4-10.4) um3 Neut % (Auto) 70.3 (38-83) % Lymph % (Auto) 17.0 L (25-47) % Redwood % (Auto) 12.0 H (0-7) % Eos % (Auto) 0 (0-6) % Baso % (Auto) 0.7 (0-2) % Absolute Neuts (auto) 5.4 (1.5-7.7) 10^3/ul Absolute Lymphs (auto) 1.3 (1.0-4.8) 10^3/ul Absolute Monos (auto) 0.9 H (0-0.8) 10^3/ul Absolute Eos (auto) 0 (0-0.6) 10^3/ul Absolute Basos (auto) 0.1 (0-0.2) 10^3/ul Absolute Nucleated RBC 0 10^3/ul Nucleated RBC % 0 INR (Anticoag Therapy) (0.77-1.02) Sodium 125 L (133-145) mmol/L Potassium 2.9 L (3.5-5.0) mmol/L Chloride 89 L (101-111) mmol/L Carbon Dioxide 25 (22-32) mmol/L Anion Gap 11 (2-11) mmol/L BUN 18 (6-24) mg/dL Creatinine 0.83 (0.51-0.95) mg/dL Est GFR ( Amer) 86.0 (>60) Est GFR (Non-Af Amer) 66.8 (>60) BUN/Creatinine Ratio 21.7 H (8-20) Glucose 113 H (70-100) mg/dL Lactic Acid 0.9 (0.5-2.0) mmol/L Calcium 9.2 (8.6-10.3) mg/dL Magnesium 2.0 (1.9-2.7) mg/dL Total Bilirubin 0.40 (0.2-1.0) mg/dL AST 29 (13-39) U/L ALT 26 (7-52) U/L Alkaline Phosphatase 91 (34-104) U/L Troponin I 0.20 H* (<0.04) ng/mL C-Reactive Protein 14.84 H (< 5.00) mg/L B-Natriuretic Peptide ( - 100) pg/mL Total Protein 7.4 (6.4-8.9) g/dL Albumin 3.4 (3.2-5.2) g/dL Globulin 4.0 (2-4) g/dL Albumin/Globulin Ratio 0.9 L (1-3) TSH 0.51 (0.34-5.60) mcIU/mL 07/20/17 07/20/17 Range/Units 12:16 12:16 WBC (3.5-10.8) 10^3/ul RBC (4.0-5.4) 10^6/ul Hgb (12.0-16.0) g/dl Hct (35-47) % MCV (80-97) fL MCH (27-31) pg MCHC (31-36) g/dl RDW (10.5-15) % Plt Count (150-450) 10^3/ul MPV (7.4-10.4) um3 Neut % (Auto) (38-83) % Lymph % (Auto) (25-47) % Redwood % (Auto) (0-7) % Eos % (Auto) (0-6) % Baso % (Auto) (0-2) % Absolute Neuts (auto) (1.5-7.7) 10^3/ul Absolute Lymphs (auto) (1.0-4.8) 10^3/ul Absolute Monos (auto) (0-0.8) 10^3/ul Absolute Eos (auto) (0-0.6) 10^3/ul Absolute Basos (auto) (0-0.2) 10^3/ul Absolute Nucleated RBC 10^3/ul Nucleated RBC % INR (Anticoag Therapy) 6.06 H* (0.77-1.02) Sodium (133-145) mmol/L Potassium (3.5-5.0) mmol/L Chloride (101-111) mmol/L Carbon Dioxide (22-32) mmol/L Anion Gap (2-11) mmol/L BUN (6-24) mg/dL Creatinine (0.51-0.95) mg/dL Est GFR ( Amer) (>60) Est GFR (Non-Af Amer) (>60) BUN/Creatinine Ratio (8-20) Glucose (70-100) mg/dL Lactic Acid (0.5-2.0) mmol/L Calcium (8.6-10.3) mg/dL Magnesium (1.9-2.7) mg/dL Total Bilirubin (0.2-1.0) mg/dL AST (13-39) U/L ALT (7-52) U/L Alkaline Phosphatase (34-104) U/L Troponin I (<0.04) ng/mL C-Reactive Protein (< 5.00) mg/L B-Natriuretic Peptide 21 ( - 100) pg/mL Total Protein (6.4-8.9) g/dL Albumin (3.2-5.2) g/dL Globulin (2-4) g/dL Albumin/Globulin Ratio (1-3) TSH (0.34-5.60) mcIU/mL Result Diagrams: 07/20/17 12:16 07/20/17 12:16 Lab Statement: Any lab studies that have been ordered have been reviewed, and results considered in the medical decision making process. - Radiology CXR Xray Interpretation: Positive (See Comments) Radiology Interpretation Completed By: Radiologist - Mild atelectasis, scarring , or infiltrate in the lingula and left lower lobe with mild improvement. - EKG 11:59 Cardiac Rate: NL EKG Rhythm: Sinus Rhythm - 82 BPM EKG Interpretation: prolonged QTC, non-diagnostic diffuse T wave flattening Complex Multi-Symp Course/Dx Course Of Treatment: Ms. Wilson presented with vague symptoms of not feeling well which have lasted several days anyway. She is a limited historian. She was noted to be anemic and hyponatremic which she has been before. Her troponin was in the indeterminant range and has not apparently been tested before. I have asked the hospitalist service to evaluated her. - Diagnoses Provider Diagnoses: Elevated troponin, Weakness Discharge - Discharge Plan Condition: Stable Disposition: ADMITTED TO [facility] Referrals: Fabián Santos MD [Primary Care Provider] - The documentation as recorded by the Joel moscoso Stephanie accurately reflects the service I personally performed and the decisions made by me, Emmanuel Flaherty MD.
[2017-07-20] MEDS ORDERED: Acetaminophen TAB* 325 MG PO PRN (15:17)
[2017-07-20] MEDS ORDERED: Ondansetron INJ* 2 MG/ML VIAL IV PRN (15:17)
[2017-07-20] MEDS ORDERED: Potassium Chlor TAB* 20 MEQ TAB.ER PO ONE (15:22)
[2017-07-20] MEDS ORDERED: Iohexol 350* (CONTRAST) 500 ML MDV IV ONE (15:27)
[2017-07-20] MEDS ORDERED: NS 0.9% 1000 ML* 1,000 ML IV SCH (15:30)
--- NOTE | 2017-07-20 15:36 | ECHO ---
Patient: CARLENE JAFFE [facility] Rec#: [id number] : 1940 Date: 07/20/2017 Age: 77y Height: 160.02 cm / 63.0 in Weight: 83.91 kg / 184.9 lbs Sex: F BSA: 1.87 Room#: ED 5 Admit Date#: 07/20/2017 Type: Inpatient Referring: Ronan Lee MD Reading: Alejandra Mendez MD Email Engineer: Jewels Gregg,RDCS,RDMS CC: Fabián Santos MD Transthoracic Echocardiogram Indication: Dizziness, weakness, Elevated TROP BP: 155/64 HR: 87 Rhythm: NSR Findings History: HTN, PE Technical Comments: The study quality is good. Left Ventricle: The left ventricular chamber size is decreased. Mild concentric left ventricular hypertrophy is observed. Global left ventricular wall motion and contractility are within normal limits. The left ventricle appears hyperdynamic. The estimated ejection fraction is greater than 65%. There is no consistent Doppler evidence of clinically significant diastolic dysfunction. Left Atrium: The left atrial chamber size is normal. Right Ventricle: The right ventricular chamber size and systolic function are within normal limits. The right ventricle wall thickness is mildly increased. Right Atrium: The right atrial cavity size is normal. Aortic Valve: The aortic valve is trileaflet. Systolic excursion of the aortic valve is normal. There is no evidence of aortic regurgitation. There is no evidence of aortic stenosis. Mitral Valve: The mitral valve leaflets appear normal. There is no evidence of mitral regurgitation. There is no evidence of mitral stenosis. Tricuspid Valve: The tricuspid valve leaflets are normal. There is mild tricuspid regurgitation. There is evidence of mild pulmonary hypertension. Pulmonic Valve: The pulmonic valve appears normal. There is a trace pulmonic regurgitation. Pericardium: There is no significant pericardial effusion. Aorta: The aortic root appears normal. There is no dilatation of the aortic arch. Pulmonary Artery: The main pulmonary artery is not well visualized. Venous: The inferior vena cava is dilated. There is a greater than 50% respiratory change in the inferior vena cava dimension. Conclusions The left ventricular chamber size is decreased. Mild concentric left ventricular hypertrophy is observed. The left ventricle appears hyperdynamic. The estimated ejection fraction is greater than 65%. The right ventricle wall thickness is mildly increased. The right ventricular chamber size and systolic function are within normal limits. There is mild tricuspid regurgitation. No prior echo to compare. Measurements Name Value Normal Range RVIDd (AP) 2D 2.9 cm (0.9 - 2.6) RVDdMajor (2D) 3 cm (2.2 - 4.4) RAd ISD 4CH 4.4 cm (3.4 - 4.9) RA (A4C)W 3.9 cm (2.9 - 4.6) IVSd (2D) 1.3 cm (0.6 - 1) LVPWd (2D) 1.2 cm (0.6 - 1) LVIDd (2D) 3.3 cm (3.6 - 5.4) LVIDs (2D) 2.3 cm - LV FS (2D) 32 % (25 - 45) Aortic Annulus 2 cm (1.4 - 2.6) Ao root diameter (2D) 2.7 cm (2.1 - 3.5) Ascending Ao 2.4 cm (2.1 - 3.4) Aortic arch 2.9 cm (1.8 - 3.4) LA dimension (AP) 2D 3.5 cm (2.3 - 3.8) LAd ISD 4CH 5.2 cm (2.9 - 5.3) LA ISD 4CH W 4.2 cm (2.5 - 4.5) Name Value Normal Range LA ESV SP 4CH (A/L) 53.48 ml - LA ESV SP 2CH (A/L) 41.36 ml - LA ESV BP (A/L) 47.31 ml - LA ESV BP (A/L) index 25 ml/m2 - LA ESV SP 4CH (MOD) 48.87 ml - LA ESV SP 2CH (MOD) 39.15 ml - Name Value Normal Range MV E-wave Vmax 0.5 m/sec - MV deceleration time 174 msec - MV A-wave Vmax 0.6 m/sec - MV E:A ratio 0.8 ratio - LV septal e' Vmax 0.04 m/sec - LV lateral e' Vmax 0.05 m/sec - LV E:e' septal ratio 12.5 ratio - LV E:e' lateral ratio 10 ratio - Name Value Normal Range AV Vmax 1 m/sec - AV VTI 17 cm - AV peak gradient 4 mmHg - AV mean gradient 1.9 mmHg - LVOT Vmax 0.8 m/sec - LVOT VTI 13 cm - LVOT peak gradient 2.6 mmHg - LVOT mean gradient 1.3 mmHg - RNEALDO Vmax 0.6 m/sec - Name Value Normal Range TR Vmax 2.9 m/sec - TR peak gradient 34 mmHg - RAP 3 mmHg - RVSP 37 mmHg - IVC diameter 2.2 cm - Name Value Normal Range PV Vmax 0.8 m/sec - PV peak gradient 2.6 mmHg -
--- NOTE | 2017-07-20 16:35 | RAD ---
INDICATION: Chest pain. Short of breath. Evaluate for pulmonary embolus. COMPARISON: Chest x-ray July 20, 2017; CT chest January 04, 2009 TECHNIQUE: Axial source images were obtained from the thoracic inlet to the hemidiaphragms following administration of 73 mL [address] angiographic technique was utilized. Coronal and sagittal reconstructed images were acquired. CHEST FINDINGS: Neck/thyroid: The visualized neck to include the thyroid appear normal. Chest wall: There are no acute abnormalities of the bony thorax or chest wall. There is no supraclavicular, infraclavicular, or axillary lymphadenopathy. Lungs : There is airspace disease in the right middle lobe and lingula. The findings are most consistent with atelectasis or scarring. There are underlying emphysematous changes There are no endobronchial lesions. Cardiomediastinal structures: There is no CT evidence of acute pulmonary embolic disease. The heart is normal in size. There is no pericardial effusion. There is no evidence of aortic aneurysm or dissection. There is no mediastinal or hilar adenopathy. The esophagus appears normal. Pleura : There are no pleural-based masses or effusions. Other: There is a large hiatal hernia, unchanged. IMPRESSION: NO CT EVIDENCE OF ACUTE PULMONARY EMBOLIC DISEASE. CONSOLIDATIVE CHANGES IN THE RIGHT MIDDLE LOBE AND LINGULA ARE SOMEWHAT LINEAR IN NATURE AND ARE MOST CONSISTENT WITH ATELECTASIS. IF THERE IS CONCERN OF ACUTE PNEUMONITIS, SUGGEST FOLLOW-UP PLAIN RADIOGRAPHS.. LARGE HIATAL HERNIA
[2017-07-20] MEDS ORDERED: Azithromycin IV(*) 500 MG in D5W 250 ML BAG* 250 ML IVPB SCH (17:00)
[2017-07-20] MEDS ORDERED: cefTRIAXone VIAL(*) 1,000 MG in D5W 50 ML BAG* 50 ML IVPB SCH (17:00)
[2017-07-20] MEDS ORDERED: Azithromycin IV(*) 500 MG in NS 0.9% 250 ML* 250 ML IVPB SCH (17:00)
[2017-07-20 17:59] LABS: Urine Appearance Cloudy; Urine Blood 2+ (Negative); Urine Color Yellow; Urine Ketones 1+ (Negative); Urine Protein Negative (Negative); Urine Urobilinogen Negative (Negative)
[2017-07-20] MEDS ORDERED: traZODone TAB* 50 MG TAB PO SCH (21:00)
--- NOTE | 2017-07-20 22:47 | HP ---
CC: Dr. Santos* HISTORY AND PHYSICAL: DATE OF ADMISSION: 07/20/17 PRIMARY CARE PROVIDER: Dr. Santos. ATTENDING PHYSICIAN WHILE IN THE HOSPITAL: Dr. Trell Lee * (report dictated by David Christopher NP) CHIEF COMPLAINT: Weakness. HISTORY OF PRESENT ILLNESS: Ms. Wilson is a 77-year-old female patient, who says that last week she went to presumably Urgent Care. I assume she went to the [facility]; we do not have any records. She says that she went there on . Prior to this, she was feeling weak and fatigued having a cough, just not feeling well. According to her PCP, there is question if she was diagnosed with pneumonia. She was started on doxycycline, initially taking the meds, but 6 days in the treatment, 2 days ago, she said she started having watery diarrhea that is getting progressively worse. She said she had it for the last few days. She said she had diarrhea yesterday. She has not had any today. She said her stomach is still off and she has been feeling nauseated. She said she went back to her primary because of the diarrhea, not feeling well. The doxycycline apparently was discontinued. She says that she is still just not feeling well. She called her primary today to be evaluated again, but she was referred to Urgent Care and then ultimately sent to here to the hospital to be evaluated. She says that she has not had any fevers that she knows of. She says that she just still is not feeling better. She is feeling weak, fatigued. No episodes of diarrhea today. No abdominal pain. There has been no nausea or vomiting. She denied having any bloody or black tarry bowel movements. She says that her last bowel movement was last night. She says that she has not been eating or drinking. She has just been feeling very fatigued. She just generally not feeling well, feeling ill. She again was concerned, came in to the ED. Initial labs were checked. It was noted she appeared to hyponatremia, sodium was 125. In addition to this, her potassium was noted to be low. It was also noted that her INR was 6. Her troponin was mildly elevated at 0.2 and we are asked to evaluate for admission. PAST MEDICAL HISTORY: Significant for: 1. Depression. 2. Anxiety. 3. History of PE, on chronic anticoagulation. 4. Hypothyroidism. 5. Insomnia. PAST SURGICAL HISTORY: She has had: 1. Cataract repair. 2. D and C. MEDICATIONS: Her home medications include: 1. Warfarin 6 mg Monday, Monday, , Monday. 2. Zocor 10 mg p.o. daily. 3. Trazodone 50 mg at bedtime. 4. Warfarin 3 mg, Monday, Monday, Monday. 5. Synthroid 75 mcg daily. 6. Prozac 20 mg daily. ALLERGIES TO MEDICATIONS: Include no known drug allergies. FAMILY HISTORY: Mother had a history of CAD, [place]. Father's history is unknown. SOCIAL HISTORY: She is a former smoker. She quit several years ago. She does not drink alcohol. Surrogate decision maker is her sister. REVIEW OF SYSTEMS: There is no documented fever. She is denying any significant weight change to me. She is denying having any double vision. There is no ear discharge. She denies having any rhinorrhea, sore throat. She does admit to having this cough. She denies any shortness of breath. No chest pain. There is no abdominal pain. She denies having any vomiting. She does admit to being nauseous. She does admit to having diarrhea. No dysuria, no frequency. No seizure and no loss of consciousness. No pruritus and no skin ulcerations. Review of 14 systems completed, all others negative. PHYSICAL EXAMINATION GENERAL: At this time, Ms. Wilson is a 77-year-old female patient. She is sitting in the ED stretcher. She does not appear to be in any acute distress. She is awake and alert. VITAL SIGNS: Reveal blood pressure 155/64, pulse 80, respirations were 18, O2 sat 95%, temperature 97.4. HEENT: Head: Atraumatic, normocephalic. Eyes: EOMs are intact. Sclerae anicteric and not pale. Throat: Oral mucosa appears to be dry. No oropharyngeal erythema. NECK: Supple. LUNGS: She had some crackles in the left base, but no wheezes, rales, or rhonchi. HEART: Sounds S1, S2. Regular rate and rhythm. No murmurs, rubs, or gallops. ABDOMEN: Soft, flat, nontender. Bowel sounds are present. EXTREMITIES: Pulses were 2+ throughout. No peripheral edema. She is moving all 4 extremities with 5/5 strength. NEUROLOGIC: The patient is awake, alert, she is oriented x3. No gross focal deficits. Skin is intact. DIAGNOSTIC STUDIES/LAB DATA: Her labs today, WBC 7.6, RBC of 4.99, hemoglobin 11.4, hematocrit 35, her platelet count was 529. Hemoglobin last checked was 11.5. Sodium was 125, potassium 2.9, these have been low even previously. Chloride is 89, bicarb 25, BUN 18, creatinine 0.83, glucose 113, lactate 0.9, calcium 9.2, mag 2.0. Total bili 0.4, AST 29, ALT 26, alk phos 91. Troponin 0.2. CRP of 14.8. BNP of 21. Albumin of 3.4. TSH normal. INR was 6.06. She had a chest x-ray obtained today, impression: Mild atelectasis, scarring, or infiltrate in the lingula and left lower lobe with mild improvement. An EKG obtained today shows a sinus rhythm, rate of 82. No ST elevations or T- wave inversions. Previous EKG is compared. Previous showed sinus tachycardia. Old medical records were reviewed. ASSESSMENT AND PLAN: Ms. Wilson is a 77-year-old female patient coming in to the hospital today with complaints of weakness. On evaluation, was found to be mildly hyponatremic. In addition to this, also found to be hypokalemic and an elevated troponin. We were asked to evaluate for admission. She will be admitted to telemetry under observation status for: 1. Weakness. Etiology is unclear. I am going to go ahead and get a flu swab. I am also going to get a CT of the chest to reevaluate the scarring to make sure that she does not have any underlying pneumonia. Also, to check for pulmonary embolism, but this is highly unlikely given her INR of 6. I will go ahead and put her on Rocephin and azithromycin. I am also going to request blood cultures be drawn as well to make sure there is not any occult infection. We will check her stool cultures. I think dehydration certainly could be driving her weakness. I would like to make sure she does not have any Clostridium difficile or any underlying infection. I suspect the diarrhea and abdominal discomfort were probably secondary to the doxycycline, which has been stopped. We will put her on azithromycin and Rocephin. I will check a procalcitonin and we will continue to follow. 2. Mild hyponatremia. It was 120 two days ago, it is 125 today. I suspect this is from dehydration. I will get serum osmo, urine sodium, and urine osmo as well. 3. Elevated troponin. Etiology is unclear. She is not having any chest pain. Again, I am getting CT of the chest. We are following her troponins and we will continue to monitor. We are going to trend these. An echo has been sent as well. Continue to follow. 4. Coagulopathy. Again, her INR is 6.06. This could be again related to her dehydration. We are going to hold her Coumadin and we will go ahead and follow. She is not having any active bleeding. I am not going to reverse, hold her Coumadin, and check in the morning. 5. DVT prophylaxis. Again, INR is 6.06. We will go ahead and monitor. 6. Hypothyroidism. Continue Synthroid. 7. Anxiety and depression. Supportive care. 8. History of pulmonary embolism. Again, we will restart warfarin when able. 9. Code status. Full code. 10. Fluids, electrolytes, and nutrition. She can have a clear liquid diet. The goal will be a regular diet. TIME SPENT: On admission was 60 minutes, greater than half the time spent face- to- face with the patient obtaining my history and physical, other half the time spent going over the plan of care with the patient and implementing plan of care. I did discuss the plan of care with my attending. DAVID CHRISTOPHER, CECILLE [id number]/CPS #: [id number] [place]
[2017-07-21] MEDS: Levothyroxine TAB* 75 MCG TAB PO SCH (06:28)
[2017-07-21 07:18] LABS: EGFR Non-African American 72.9 (>60)
[2017-07-21] MEDS: FLUoxetine CAP* 20 MG PO SCH (09:03)
[2017-07-21] MEDS: Atorvastatin* 10 MG TAB PO SCH (09:03)
[2017-07-21 09:58] LABS: ABS Basophils 0.1 10^3/ul (0-0.2); ABS Eosinophils 0 10^3/ul (0-0.6); ABS Lymphocytes 1.8 10^3/ul (1.0-4.8); ABS Monocytes 0.5 10^3/ul (0-0.8); ABS Nucleated RBC 0 10^3/ul; Eosinophil % 0.5 % (0-6); Hematocrit 35 % (35-47); Hemoglobin 11.1 g/dl (12.0-16.0); Lymphocyte % 24.3 % (25-47); Mean Corpuscular HGB Conc 32 g/dl (31-36); Mean Corpuscular Hemoglobin 23 pg (27-31); Mean Corpuscular Volume 72 fL (80-97); Mean Platelet Volume 8 um3 (7.4-10.4); Nucleated Red Blood Cells % 0.1; Platelet Count 526 10^3/ul (150-450); Red Blood Count 4.92 10^6/ul (4.0-5.4); Red Cell Distribution Width 16 % (10.5-15); White Blood Count 7.5 10^3/ul (3.5-10.8)
[2017-07-21 10:24] LABS: INR 4.95 (0.77-1.02)
--- NOTE | 2017-07-21 14:31 | DCNOTE ---
Subjective Date of Service: 07/21/17 Interval History: Feels a little stronger. No BM today, only had small amount of stool leakage. Hungry. Little or no cough, no SOB. Objective Active Medications: Acetaminophen (Tylenol Tab*) 650 mg PO Q4H PRN PRN Reason: FEVER/PAIN Atorvastatin Calcium (Lipitor*) 5 mg PO DAILY [facility] Last Admin: 07/21/17 09:03 Dose: 5 mg Ferrous Sulfate (Ferrous Sulfate Tab*) 325 mg PO DAILY [facility] Fluoxetine HCl (Prozac Cap*) 20 mg PO DAILY [facility] Last Admin: 07/21/17 09:03 Dose: 20 mg Levothyroxine Sodium (Synthroid Tab*) 75 mcg PO 0600 [facility] Last Admin: 07/21/17 06:28 Dose: 75 mcg Ondansetron HCl (Zofran Inj*) 4 mg IV Q6H PRN PRN Reason: NAUSEA Pharmacy Profile Note (Coumadin Daily Reminder*) 0 note FOLLOW UP 1700 [facility] Trazodone HCl (Desyrel Tab*) 50 mg PO BEDTIME [facility] Last Admin: 07/20/17 22:01 Dose: 50 mg Warfarin Sodium (Coumadin Tab(*)) 2.5 mg PO DAILY@1700 [facility] PRN Reason: Protocol Vital Signs - 8 hr 07/21/17 07/21/17 07/21/17 07:57 08:00 11:43 Temperature 97.8 F 97.6 F Pulse Rate 75 83 Respiratory 20 20 20 Rate Blood Pressure 138/48 134/50 (mmHg) O2 Sat by Pulse 93 98 Oximetry Oxygen Devices in Use Now: None Appearance: Alert, in a chair. In fair spirits. Looks comfortable. Eyes: No Scleral Icterus Ears/Nose/Mouth/Throat: Clear Oropharnyx, Mucous Membranes Moist Neck: NL Appearance and Movements; NL JVP, No Thyroid Enlargement, Masses Respiratory: Symmetrical Chest Expansion and Respiratory Effort, Clear to Auscultation, Clear to Percussion Cardiovascular: NL Sounds; No Murmurs; No JVD, RRR, No Edema, - Extremities: No Edema, No Clubbing, Cyanosis, - Skin: No Rash or Ulcers, No Nodules or Sclerosis, - Neurological: Alert and Oriented x 3, NL Sensation Result Diagrams: 07/21/17 09:30 07/21/17 06:50 Additional Lab and Data: Lab Results 07/20/17 07/20/17 07/20/17 Range/Units 12:16 12:16 12:16 WBC 7.6 (3.5-10.8) 10^3/ul RBC 4.99 (4.0-5.4) 10^6/ul Hgb 11.4 L (12.0-16.0) g/dl Hct 35 (35-47) % MCV 71 L (80-97) fL MCH 23 L (27-31) pg MCHC 32 (31-36) g/dl RDW 16 H (10.5-15) % Plt Count 529 H (150-450) 10^3/ul MPV 7 L (7.4-10.4) um3 Neut % (Auto) 70.3 (38-83) % Lymph % (Auto) 17.0 L (25-47) % Faulkner % (Auto) 12.0 H (0-7) % Eos % (Auto) 0 (0-6) % Baso % (Auto) 0.7 (0-2) % Absolute Neuts (auto) 5.4 (1.5-7.7) 10^3/ul Absolute Lymphs (auto) 1.3 (1.0-4.8) 10^3/ul Absolute Monos (auto) 0.9 H (0-0.8) 10^3/ul Absolute Eos (auto) 0 (0-0.6) 10^3/ul Absolute Basos (auto) 0.1 (0-0.2) 10^3/ul Absolute Nucleated RBC 0 10^3/ul Nucleated RBC % 0 INR (Anticoag Therapy) (0.77-1.02) Sodium 125 L (133-145) mmol/L Potassium 2.9 L (3.5-5.0) mmol/L Chloride 89 L (101-111) mmol/L Carbon Dioxide 25 (22-32) mmol/L Anion Gap 11 (2-11) mmol/L BUN 18 (6-24) mg/dL Creatinine 0.83 (0.51-0.95) mg/dL Est GFR ( Amer) 86.0 (>60) Est GFR (Non-Af Amer) 66.8 (>60) BUN/Creatinine Ratio 21.7 H (8-20) Glucose 113 H (70-100) mg/dL Lactic Acid 0.9 (0.5-2.0) mmol/L Calcium 9.2 (8.6-10.3) mg/dL Magnesium 2.0 (1.9-2.7) mg/dL Total Bilirubin 0.40 (0.2-1.0) mg/dL AST 29 (13-39) U/L ALT 26 (7-52) U/L Alkaline Phosphatase 91 (34-104) U/L Troponin I 0.20 H* (<0.04) ng/mL C-Reactive Protein 14.84 H (< 5.00) mg/L B-Natriuretic Peptide ( - 100) pg/mL Total Protein 7.4 (6.4-8.9) g/dL Albumin 3.4 (3.2-5.2) g/dL Globulin 4.0 (2-4) g/dL Albumin/Globulin Ratio 0.9 L (1-3) TSH 0.51 (0.34-5.60) mcIU/mL 07/20/17 07/20/17 Range/Units 12:16 12:16 WBC (3.5-10.8) 10^3/ul RBC (4.0-5.4) 10^6/ul Hgb (12.0-16.0) g/dl Hct (35-47) % MCV (80-97) fL MCH (27-31) pg MCHC (31-36) g/dl RDW (10.5-15) % Plt Count (150-450) 10^3/ul MPV (7.4-10.4) um3 Neut % (Auto) (38-83) % Lymph % (Auto) (25-47) % Faulkner % (Auto) (0-7) % Eos % (Auto) (0-6) % Baso % (Auto) (0-2) % Absolute Neuts (auto) (1.5-7.7) 10^3/ul Absolute Lymphs (auto) (1.0-4.8) 10^3/ul Absolute Monos (auto) (0-0.8) 10^3/ul Absolute Eos (auto) (0-0.6) 10^3/ul Absolute Basos (auto) (0-0.2) 10^3/ul Absolute Nucleated RBC 10^3/ul Nucleated RBC % INR (Anticoag Therapy) 6.06 H* (0.77-1.02) Sodium (133-145) mmol/L Potassium (3.5-5.0) mmol/L Chloride (101-111) mmol/L Carbon Dioxide (22-32) mmol/L Anion Gap (2-11) mmol/L BUN (6-24) mg/dL Creatinine (0.51-0.95) mg/dL Est GFR ( Amer) (>60) Est GFR (Non-Af Amer) (>60) BUN/Creatinine Ratio (8-20) Glucose (70-100) mg/dL Lactic Acid (0.5-2.0) mmol/L Calcium (8.6-10.3) mg/dL Magnesium (1.9-2.7) mg/dL Total Bilirubin (0.2-1.0) mg/dL AST (13-39) U/L ALT (7-52) U/L Alkaline Phosphatase (34-104) U/L Troponin I (<0.04) ng/mL C-Reactive Protein (< 5.00) mg/L B-Natriuretic Peptide 21 ( - 100) pg/mL Total Protein (6.4-8.9) g/dL Albumin (3.2-5.2) g/dL Globulin (2-4) g/dL Albumin/Globulin Ratio (1-3) TSH (0.34-5.60) mcIU/mL Microbiology and Other Data: Microbiology 07/21/17 11:45 Gram Stain - Final Sputum 07/20/17 15:48 Influenza Types A,B Antigen (SVETA) - Final Nasal Specimen received for Influenza A/B Molecular testing 07/20/17 17:40 Legionella Urinary Antigen - Final Urine Negative Legionella Streptococcus pneumoniae Ag Screen - Final Negative S. pneumo Antigen Assess/Plan/Problems-Billing Assessment: - Patient Problems (1) Weakness Current Visit: Yes Status: Acute Code(s): R53.1 - WEAKNESS SNOMED Code(s) : 45255369 Comment: Recent treatment with doxycycline for PNA, now feeling better. Note low procalcitonin 07/20/17. Hold on antibioitcs. I think her anemia and possible iron deficiency are contributing to her weakness. Add on iron, tibc, ferritin pending. Start ferrous sulfate. (2) Anemia Current Visit: Yes Status: Acute Code(s): D64.9 - ANEMIA, UNSPECIFIED SNOMED Code(s): 333134994 Comment: I think her anemia and possible iron deficiency are contributing to her weakness. Add on iron, tibc, ferritin pending. Start ferrous sulfate. (3) Hx pulmonary embolism Current Visit: Yes Status: Acute Code(s): Z86.711 - PERSONAL HISTORY OF PULMONARY EMBOLISM SNOMED Code(s): 991547455 Comment: INR down to 4.95. Hold warfarin for second day (07/21), plan re- starting 07/22 at home at 2.5 mg daily. INR 07/25. (4) Hypothyroid Current Visit: Yes Status: Acute Code(s): E03.9 - HYPOTHYROIDISM, UNSPECIFIED SNOMED Code(s): 45563941 Comment: THS wnl 07/20/17. Continue home dose levothyroxine. (5) Hypokalemia Current Visit: Yes Status: Acute Code(s): E87.6 - HYPOKALEMIA SNOMED Code( s): 66058442 Comment: Improved. Should resolve with normal diet now that diarrhea has resolved. BMP 07/25. (6) Hyponatremia Current Visit: Yes Status: Acute Code(s): E87.1 - HYPO-OSMOLALITY AND HYPONATREMIA SNOMED Code(s): 87879880 Comment: Improved. I expect continued improvement. BMP 07/25.
[2017-07-21] MEDS ORDERED: traZODone TAB* 50 MG TAB PO PRN (14:34)
[2017-07-21] MEDS: Ferrous Sulfate TAB* 325 MG PO SCH (18:06)
[2017-07-22] MEDS: Levothyroxine TAB* 75 MCG TAB PO SCH (05:29)
[2017-07-22] MEDS: Ferrous Sulfate TAB* 325 MG PO SCH (09:29)
[2017-07-22] MEDS: Atorvastatin* 10 MG TAB PO SCH (09:29)
[2017-07-22] MEDS: FLUoxetine CAP* 20 MG PO SCH (09:29)
[2017-07-22 10:09] VITALS: BP 147/57
[2017-07-22] MEDS ORDERED: Warfarin TAB(*) 2.5 MG PO SCH (17:00)
--- NOTE | 2017-07-22 18:11 | DS ---
CC: Dr. Fabián Santos DISCHARGE SUMMARY: DATE OF ADMISSION: DATE OF DISCHARGE: 07/21/17 HISTORY OF PRESENT ILLNESS: This 77-year-old woman presents to the emergency room because of weaknes s. She went to an urgent care center on 07/12/17. She said she was weak and had a cough. It is not really clear if she was diagnosed with pneumonia. She was given doxycycline after 6 days, which wou ld have been 2 days before admission. She developed watery diarrhea that got worse, this lasted a fe w days. She had some diarrhea the day before admission, but not on the day of admission. The doxycy pelayo was discontinued. The patient felt fatigued. In the emergency room, she was noted to have a s odium of 125 and a low potassium level. Her INR was 6, as she was on warfarin and probably there was some interference between the antibiotic s she was given as well as decreased fluid intake. The patient was admitted to telemetry unit. Initial troponin level in the emergency room was 0.20, b ut 2 subsequent troponins are both 0.01. I suspect the initial troponin level was a lab error. The patient did not have chest pain or shortness of breath or really any manifestation of significant car diovascular disease during this hospital stay. The patient felt a little stronger the second hospital stay. She was found to be anemic with a link tin level of 11 and microcytic indices. She was started on ferrous sulfate. Repeat INR was 4.95. F or the second hospital day, warfarin was again held, so it has been held 2 days in a row on the day o f planned discharge, 07/22/17. She will restart at home at a lower dose of 2.5 mg daily and get an I NR on 07/25/17. FINAL DIAGNOSES: 1. Iron deficiency anemia. 2. Recent respiratory infection. 3. History of pulmonary embolism. 4. Hypothyroidism. 5. Hypokalemia. 6. Hyponatremia. DISCHARGE MEDICATIONS: 1. Acetaminophen 650 mg every 4 hours p.r.n. 2. Ferrous sulfate 325 mg daily. 3. Warfarin 2.5 mg daily, starting on 07/22/17. 4. Trazodone 25 mg daily, recently one-half of a 50 mg tablet. This is a lower dose when at home. [id number]/[facility] #: [id number]
== END 2017-07-22 11:40 | disposition home or self-care (01) ==
LOC: ED 11:19 → MEDTELE 15:11
PROVIDERS: ADMIT Internal Medicine; ATTEND Internal Medicine
DX: D50.9 Iron deficiency anemia, unspecified (principal); R53.1 Weakness; E03.9 Hypothyroidism, unspecified; E87.6 Hypokalemia; E87.1 Hypo-osmolality and hyponatremia; R74.8 Abnormal levels of other serum enzymes; G47.00 Insomnia, unspecified; F41.9 Anxiety disorder, unspecified; F32.9 Major depressive disorder, single episode, unspecified; Z79.899 Other long term (current) drug therapy; Z87.891 Personal history of nicotine dependence; Z86.711 Personal history of pulmonary embolism; Z79.01 Long term (current) use of anticoagulants; I45.81 Long QT syndrome; I51.7 Cardiomegaly
CPT/HCPCS: 36415; 71046; 71275; 80048; 80053; 80061; 81003; 81015; 82728; 83036; 83540; 83550; 83605; 83735; 83880; 83930; 83935; 84145; 84300; 84443; 84484; 85025; 85610; 86140; 87040; 87070; 87086; 87106; 87177; 87205; 87209; 87328; 87329; 87493; 87502; 87899; 93005; 93306; 96365; 96366; 96367; 99284; A9270-GY; G0378; J0456; J0696; Q9967

== ENCOUNTER 2020-02-29 08:56 | Observation (INO) ==
[2020-02-29 09:47] LABS: ABS Lymphocytes 1.5 10^3/ul (1.0-4.8); ABS Monocytes 0.5 10^3/ul (0-0.8); ABS Neutrophils 2.9 10^3/ul (1.5-7.7); Eosinophil % 0.1 %; Hematocrit 42 % (35-47); Hemoglobin 14.2 g/dL (12.0-16.0); Lymphocyte % 29.6 %; Mean Corpuscular HGB Conc 34 g/dL (31-36); Mean Corpuscular Hemoglobin 26 pg (27-31); Mean Corpuscular Volume 77 fL (80-97); Mean Platelet Volume 8.8 fL (7.4-10.4); Nucleated Red Blood Cells % 0.1; Platelet Count 287 10^3/uL (150-450); Red Blood Count 5.46 10^6 /uL (3.70-4.87); Red Cell Distribution Width 15 % (10-15); White Blood Count 4.9 10^3/uL (3.5-10.8)
[2020-02-29 10:06] LABS: Albumin 3.8 g/dL (3.2-5.2); BUN/Creatinine Ratio 14.9 (8-20); C Reactive Protein 10.75 mg/L (<8.01); Calcium 9.1 mg/dL (8.6-10.3); EGFR African American 91.8 (>60); EGFR Non-African American 75.9 (>60); Globulin 3.8 g/dL (2-4); Potassium 3.3 mmol/L (3.5-5.0); Total Bilirubin 0.6 mg/dL (0.2-1.0); Total Protein 7.6 g/dL (6.4-8.9)
[2020-02-29] MEDS ORDERED: oxyCODONE/Acetamin 5/325 mg TAB PO ONE ×2 (11:02→18:36)
[2020-02-29 15:57] LABS: Urine Appearance Cloudy; Urine Bilirubin Negative (Negative); Urine Blood 1+ (Negative); Urine Color Yellow; Urine Glucose Negative (Negative); Urine Ketones 1+ (Negative); Urine Nitrite Negative (Negative); Urine Protein 2+(100 mg/dL) (Negative); Urine Specific Gravity 1.015 (1.010-1.030); Urine Urobilinogen Negative (Negative)
[2020-02-29 16:00] LABS: Urine Bacteria Absent (Absent); Urine Red Blood Cell 3+(>10/hpf) (Absent); Urine Squamous Epithelial Cell Present (Absent); Urine White Blood Cell Trace(0-5/hpf) (Absent)
[2020-02-29] MEDS ORDERED: Lactated Ringers 1000 ml BAG 1,000 ML IV ONE (16:06)
[2020-02-29 19:04] LABS: INR 2.56 (0.82-1.09)
[2020-02-29] MEDS ORDERED: Iohexol 350 (CONTRAST) 500 ML MDV IV ONE (19:50)
[2020-02-29] MEDS ORDERED: Ondansetron 4 mg VIAL 2 MG/ML 2 ml VIAL IV PRN (22:35)
[2020-02-29] MEDS ORDERED: Potassium Chlor 20 meq TAB.ER PO ONE (22:39)
[2020-03-01] MEDS: oxyCODONE/Acetamin 5/325 mg TAB PO PRN ×5 (05:17→22:00)
[2020-03-01 09:40] LABS: INR 2.12 (0.82-1.09)
[2020-03-01 09:45] LABS: Calcium 9.2 mg/dL (8.6-10.3); Potassium 3.8 mmol/L (3.5-5.0)
[2020-03-01 09:50] LABS: BUN/Creatinine Ratio 12.3 (8-20); EGFR African American 93.3 (>60); EGFR Non-African American 77.1 (>60)
[2020-03-02] MEDS: oxyCODONE/Acetamin 5/325 mg TAB PO PRN ×5 (02:57→22:14)
[2020-03-02 06:52] LABS: INR 2.06 (0.82-1.09)
[2020-03-02 06:55] LABS: ABS Lymphocytes 2.3 10^3/ul (1.0-4.8); ABS Monocytes 0.6 10^3/ul (0-0.8); ABS Neutrophils 2.7 10^3/ul (1.5-7.7); Eosinophil % 0.5 %; Hematocrit 41 % (35-47); Hemoglobin 13.4 g/dL (12.0-16.0); Lymphocyte % 40.7 %; Mean Corpuscular HGB Conc 33 g/dL (31-36); Mean Corpuscular Hemoglobin 26 pg (27-31); Mean Corpuscular Volume 79 fL (80-97); Mean Platelet Volume 8.8 fL (7.4-10.4); Nucleated Red Blood Cells % 0.1; Platelet Count 283 10^3/uL (150-450); Red Blood Count 5.25 10^6 /uL (3.70-4.87); Red Cell Distribution Width 16 % (10-15); White Blood Count 5.8 10^3/uL (3.5-10.8)
[2020-03-02 06:59] LABS: BUN/Creatinine Ratio 12.8 (8-20); Calcium 8.9 mg/dL (8.6-10.3); EGFR African American 77.2 (>60); EGFR Non-African American 63.8 (>60); Magnesium 1.7 mg/dL (1.9-2.7); Potassium 3.7 mmol/L (3.5-5.0)
[2020-03-02] MEDS ORDERED: Warfarin per PHARMACY **NOTE FOLLOW UP SCH (21:00)
[2020-03-03] MEDS: oxyCODONE/Acetamin 5/325 mg TAB PO PRN ×4 (05:43→21:03)
[2020-03-03 09:40] LABS: INR 2.01 (0.82-1.09)
[2020-03-03] MEDS: Magnesium Hydroxide LIQ 30 ML UDC PO SCH (21:07)
[2020-03-04] MEDS: oxyCODONE/Acetamin 5/325 mg TAB PO PRN ×4 (05:45→22:50)
[2020-03-04 07:14] LABS: INR 2.04 (0.82-1.09)
[2020-03-04] MEDS: Magnesium Hydroxide LIQ 30 ML UDC PO SCH ×2 (08:42→22:50)
[2020-03-05] MEDS: oxyCODONE/Acetamin 5/325 mg TAB PO PRN ×4 (05:58→22:32)
[2020-03-05] MEDS: Magnesium Hydroxide LIQ 30 ML UDC PO SCH ×2 (09:52→21:10)
[2020-03-06] MEDS: oxyCODONE/Acetamin 5/325 mg TAB PO PRN ×4 (05:44→21:08)
[2020-03-06] MEDS: Magnesium Hydroxide LIQ 30 ML UDC PO SCH ×2 (07:34→20:52)
[2020-03-06 09:38] LABS: INR 1.84 (0.82-1.09)
[2020-03-06 10:01] LABS: CO2 Carbon Dioxide 23 mmol/L (22-32); Calcium 8.8 mg/dL (8.6-10.3); Chloride 100 mmol/L (101-111); Sodium 133 mmol/L (135-145)
[2020-03-06 10:06] LABS: BUN/Creatinine Ratio 13.8 (8-20); Blood Urea Nitrogen 11 mg/dL (6-24); EGFR African American 83.9 (>60); EGFR Non-African American 69.4 (>60); Glucose 88 mg/dL (70-100)
[2020-03-06 11:14] LABS: Anion Gap 10 mmol/L (2-11)
[2020-03-07] MEDS: oxyCODONE/Acetamin 5/325 mg TAB PO PRN ×4 (03:12→20:28)
[2020-03-07 06:51] LABS: INR 1.97 (0.82-1.09)
[2020-03-07] MEDS: Magnesium Hydroxide LIQ 30 ML UDC PO SCH ×2 (07:14→23:10)
[2020-03-08] MEDS: oxyCODONE/Acetamin 5/325 mg TAB PO PRN ×3 (02:14→17:34)
[2020-03-08 06:51] LABS: INR 2.05 (0.82-1.09)
[2020-03-08] MEDS: Magnesium Hydroxide LIQ 30 ML UDC PO SCH ×2 (08:37→20:54)
[2020-03-09] MEDS: oxyCODONE/Acetamin 5/325 mg TAB PO PRN ×2 (03:52→08:32)
[2020-03-09 07:42] LABS: INR 2.19 (0.82-1.09)
[2020-03-09] MEDS: Magnesium Hydroxide LIQ 30 ML UDC PO SCH (08:30)
[2020-03-09 13:12] VITALS: BP 136/66
== END 2020-03-09 14:10 | DRG 543 ==
LOC: ED 08:56 → MED 08:56
PROVIDERS: ADMIT Internal Medicine; ATTEND Internal Medicine